=== PATIENT | female | born 1995 | race African-American/Black ===

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

== ENCOUNTER 2017-08-11 08:17 | Emergency (ER) | payer OTHER ==
[2017-08-11 08:32] VITALS: BP 128/78; PULSE 88; TEMP 99.3; BMI 24.0
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
[2017-08-11] MEDS ORDERED: METOCLOPRAMIDE HCL INJECTION 10 MG/2 ML VIAL IVPB ONE (10:35)
[2017-08-11] MEDS ORDERED: METOCLOPRAMIDE HCL INJECTION 10 MG/2 ML VIAL ONE (10:49)
== END 2017-08-11 12:24 | disposition home or self-care (01) ==
LOC: JERFT 08:17
PROC: 3E033GC Introduction of Other Therapeutic Substance into Peripheral Vein, Percutaneous Approach (ICD-10-PCS; principal; 2017-08-11)
DX: G43.009 Migraine without aura, not intractable, without status migrainosus (principal)
CPT/HCPCS: 70450-TC; 84703; 96374; 99281-25

== ENCOUNTER 2018-08-31 23:02 | Inpatient (IN) | payer OTHER ==
[2018-08-31 23:11] VITALS: BMI 20.6
--- NOTE | 2018-08-31 23:24 | PDOC ---
History of Present Illness - General Chief Complaint: Seizure Stated Complaint: SEIZURE Time Seen by Provider: 08/31/18 23:04 History Source: Patient - History of Present Illness Initial Comments: 08/31/18 23:17 23 year old female with a PMH of Brain abscess (2/2 to sinusitis infection) who presents to our ED s/p seizure. History provided by @ bedside. Patient 's states he and patient were sleeping when he woke up because patient was shaking. Her arms and legs were moving and her eyes rolled up in her head. She hit her head on headboard and moved patient to the floor and called 911. Seizure activity lasted approximately 5 minutes. Previous seizure more than 11 years previous and associated with her brain abscess. Patient has been c/o daily headaches for the last 2-3 months and seen a few neurologists with little relief of her symptoms. Has been taking Excedrin today for her headache. NKDA Surgical: C/S Social: denies toxic habits PMD: none-will refer As per EMR, patient evaluated in our ED in 07/2017 for MENDOZA; Head CT negative for hemmorage, mass effect. S/p bifrontal and R parietal crainiotomy. Past History - Past Medical History Allergies/Adverse Reactions: Allergies Allergy/AdvReac Type Severity Reaction Status Date / Time No Known Allergies Allergy Verified 08/31/18 23:11 Home Medications: Ambulatory Orders Meloxicam 7.5 mg PO DAILY 09/01/18 Tizanidine HCl 2 mg PO DAILY 09/01/18 Asthma: No Cancer: No Cardiac Disorders: No COPD: No Diabetes: No HTN: No Seizures: No Thyroid Disease: No - Immunization History Immunization Up to Date: Yes - Suicide/Smoking/Psychosocial Hx Smoking History: Never smoked Have you smoked in the past 12 months: No Information on smoking cessation initiated: No Hx Alcohol Use: No Drug/Substance Use Hx: No Substance Use Type: None Hx Substance Use Treatment: No Review of Systems - Review of Systems Able to Perform ROS?: No (Post Ictal) *Physical Exam - Vital Signs Last Vital Signs Temp Pulse Resp BP Pulse Ox 97.4 F L 71 13 121/54 L 95 08/31/18 23:02 08/31/18 23:02 08/31/18 23:02 08/31/18 23:02 08/31/18 23:02 - Physical Exam Comments: 09/01/18 01:18 Triage VS reviewed Drowsy, but arousable HEENT: frontal hematoma, EOMI, PEERLA CV: S1,S2, RRR Abdomen: soft, non-tender, (+) bowel sounds Respiratory: CLTA B/L, no wheeze/crackle Neuro: A&O x3, CN II-XII intact Heart Score/ECG Review - ECG Impressions Comment:: 09/01/18 01:56 HR 67, NSR, normal intervals, no deviations, no VIVIAN/STD/TWI ED Treatment Course - LABORATORY CBC & Chemistry Diagram: 09/01/18 06:05 09/01/18 06:05 Medical Decision Making - Medical Decision Making 08/31/18 23:29 23 year old female s/p crainotomy (10+ years previous) with witnessed tonic/ clonic seizure. Post Ictal and hypoxic (SpO2 80's) @ presentation. Head CT to r/o mass, intacranial hemmorhage. Serum , Basic Labs Keppra Loading. Likely disposition is admission. 09/01/18 00:37 Patient reassessed @ bedside C/o Headache - Tylenol VSS EKG non-ischemic as documented in EKG section of EMR 09/01/18 01:[address] shows no acute finding Hospitalist microblogged for admission - patient requires further evaluation of her seizure including MRI and EEG 09/01/18 01:58 Dr. Alexander (Resident) @ bedside Will admit to OBS *DC/Admit/Observation/Transfer Diagnosis at time of Disposition: Seizure - Referrals - Patient Instructions - Post Discharge Activity
--- NOTE | 2018-08-31 23:28 | PDOC ---
Documentation entered by May Todd SCRIBE, acting as scribe for Monserrat Phillips MD. Monserrat Phillips MD: This documentation has been prepared by the lamineePeyton Adrianna, SCRIBE, under my direction and personally reviewed by me in its entirety. I confirm that the documentation accurately reflects all work, treatment, procedures, and medical decision making performed by me. Attending Attestation - Resident Resident Name: Susan Saldana - ED Attending Attestation I have performed the following: I have examined & evaluated the patient, The case was reviewed & discussed with the resident, I agree w/resident's findings & plan, Exceptions are as noted - HPI HPI: The patient is a 23 year old female, with a significant PMH of brain abscess ( secondary to sinusitis, s/p craniotomy), who presents to the emergency department today s/p seizure prior to arrival. Patients notes they were in bed sleeping one hour ago, when he felt something shaking in bed. He woke up to find the patients extremities shaking and her eyes rolled back. He notes she hit her head on the headboard, and he proceeded to move her off of the bed and onto the floor. notes the episode lasted for 5 minutes. He states her last seizure was over 11 years ago, and was related to her brain abscess. Patient has been endorses a frontal headache for the past few months, but has been following up with her neurologist regularly without any acute findings. Patient is postictal while in the ED during evaluation. The patient denies chest pain, shortness of breath, and dizziness. Denies fever, chills, nausea, vomit, diarrhea and constipation. Denies dysuria, frequency, urgency and hematuria. Allergies: NKA Past surgical history: Craniotomy Social history: No reported PCP: Doesnt have one 08/31/18 23:31 - Physicial Exam PE: 09/01/18 00:52 wnwd 23 yo female BIBA after witnessed 5 minute tonic clonic seizure head scalp hematoma eyes dora eomi oral exam no tongue trauma neck supple lungs cta b/l cvs [id number] abd nontender ext no deformities skin warm and dry no cva tenderness neuro initially post ictal but soon became conversant and no gross focal neuro deficits - Medical Decision Making 08/31/18 23:25 23 yo female BIBA after having a witnessed 5 minute tonic clonic seizure,pt in bed and hit her head on the headboard H brain abscess and is s/p craniotomy 2009 and sinus surgery 2012 she has had an intermittent headache for the past 3 months 09/01/18 00:55 new onset of tonic clonic seizures in 23 yo female with remote history of brain abscess and craniotomy labd wnl neg preg test ct scan brain done,reading is pending neuro consult/admit 09/01/18 01:40 09/01/18 01:44 EXAM: HEAD CT WITHOUT CONTRAST HISTORY: Seizure FINDINGS: Patient has had a bifrontal/bitemporal craniotomy. Underlying bifrontal encephalomalacia. No hemorrhage. No obvious acute infarct. Osseous structures are intact except for craniotomy defects. Reported By: Mitchell Obando MD 09/01/2018 01:38 EST 09/01/18 01:46 CAT scan of the head findings. Patient has had a bifrontal bitemporal craniotomy. I frontal encephalomalacia. No hemorrhage. No obvious acute infarct. Osseous structures are intact except for craniotomy defects plan admit/further neuro eval
[2018-08-31] MEDS ORDERED: levETIRAcetam 500 MG/5 ML INJECTION VIAL IVPB ONE (23:29)
[2018-09-01 00:09] LABS: BASO % 0.4 % (0-2.0); EOS % 0.2 % (0-4.5); HEMATOCRIT 36.8 % (32.4-45.2); HEMOGLOBIN 12.1 GM/dL (10.7-15.3); LYMPH % 4.8 % (8-40); MCH 31.3 pg (25.7-33.7); MEAN CELL VOLUME 94.8 fl (80-96); MEAN PLT VOLUME 9.6 fl (7.5-11.1); MONO % 3.5 % (3.8-10.2); NEUT % 91.1 % (42.8-82.8); PLATELET COUNT 190 K/MM3 (134-434); RBC 3.88 M/mm3 (3.60-5.2); WHITE BLOOD COUNT 12.2 K/mm3 (4.0-10.0)
[2018-09-01 00:30] LABS: BILIRUBIN,TOTAL 0.1 mg/dL (0.2-1); BLOOD UREA NITROGEN 18.1 mg/dL (7-18); CALCIUM 9.1 mg/dL (8.5-10.1); CREATININE 0.8 mg/dL (0.55-1.3); TOT PROT 7.5 g/dl (6.4-8.2)
[2018-09-01] MEDS ORDERED: ACETAMINOPHEN 1000 MG/100 ML VIAL (NON FORMULARY) IVPB ONE (00:38)
[2018-09-01] MEDS ORDERED: levETIRAcetam 500 MG/5 ML INJECTION VIAL IVPB ONE (00:40)
[2018-09-01] MEDS ORDERED: ACETAMINOPHEN INJECTION 100 ML IVPB ONE (01:48)
[2018-09-01 01:57] LABS: ANISOCYTOSIS 0; HELMET CELLS 0; HOWELL-JOLLY BODIES 0; MACROCYTOSIS 0; OVALOCYTE 0; PLATELET ESTIMATE NORMAL; ROULEAU 0; SICKELED CELLS 0; TARGET CELLS 0; TEAR DROP CELLS 0; TOXIC GRANULATION 0
--- NOTE | 2018-09-01 02:26 | PN ---
Teaching Attending Note Name of Resident: Malika Alexander ATTENDING PHYSICIAN STATEMENT I saw and evaluated the patient. I reviewed the resident's note and discussed the case with the resident. I agree with the resident's findings and plan as documented. SUBJECTIVE: Patient is a 23 year old woman with a PMH of brain abscess (secondary to sinusitis, s/p craniotomy 10 years ago), who presents to the ER after a witnessed seizure. Patients notes they were in bed sleeping one hour ago, when he felt something shaking in bed. He woke up to find the patients extremities shaking and her eyes rolled back. He notes she hit her head on the headboard, and he proceeded to move her off of the bed and onto the floor. notes the episode lasted about 5 minutes. He states her last seizure was over 11 years ago, and was related to her brain abscess. Reportedly had an unwitnessed seizure 2 months ago (was found on the floor). Patient has been having a frontal headache for the past few months, but has been following up with her neurologist regularly without any acute findings. Patient is postictal while in the ER during evaluation. Lives at home with her , her one year old child and her grandmother. Smokes marijuana twice a day. Denies alcohol abuse or use of any othe illicit drug. Has had irregular menstrual bleeding since her childbirth last year. The patient denies chest pain , shortness of breath, fever, chills, nausea, vomit, diarrhea, constipation, dysuria, frequency, urgency or hematuria. OBJECTIVE: Alert Vital Signs Period Temp Pulse Resp BP Sys/Taylor Pulse Ox Last 24 Hr 97.4 F-98.5 F 71-86 13 121-135/54-81 95-96 HEENT: No Jaundice, eye redness or discharge, PERRLA, EOMI. Craniotomy scar. External ears are normal and hearing is grossly intact. No nasal discharge. Neck: Supple, nontender. No palpable adenopathy or thyromegaly. No JVD Chest: Good effort. Clear to auscultation and percussion. Heart: Regular. No S3, rub or murmur Abdomen: Not distended, soft, nontender and no HSM. No rebound or guarding. Normal bowel sounds. Ext: Peripheral pulses intact. No leg edema. Skin: Warm and dry. No petechiae, rash or ecchymosis. Neuro: Alert. Oriented x3. CN 2-12 grossly intact. Sensation grossly intact in all four extremities and DTR are symmetric. Psych: Appropriate mood and affect. Good insight. Home Medications Medication Instructions Recorded NK [No Known Home Medication] 08/11/17 Abnormal Lab Results 08/31/18 08/31/18 23:51 23:51 WBC 12.2 H Absolute Neuts (auto) 11.1 H Neutrophils % 91.1 H D Lymphocytes % 4.8 L D Lymphocytes % (Manual) 7.8 L Monocytes % 3.5 L Monocytes % (Manual) 0 L Eosinophils % (Manual) 4.8 H Chloride 108 H Anion Gap 1 L BUN 18.1 H Total Bilirubin 0.1 L Alkaline Phosphatase 123 H ASSESSMENT AND PLAN: 1. Seizure disorder - May be related to sequelae of craniotomy. Leukocytosis may be due to the stress of seizure. Patient is afebrile and there is no other evidence of infection. Report of non contrast CT scan of brain = "Patient has had a bifrontal/bitemporal craniotomy. Underlying bifrontal encephalomalacia. No hemorrhage. No obvious acute infarct. Osseous structures are intact except for craniotomy defects.". No acute pathology on CXR and EKG is NSR with no significant changes. Patient got 1 gm of Keppra in the ER. Will get MRI/MRA, repeat CBC, EEG, urine toxicology and consult Neurology. 2. DVT prophylaxis - Lovenox 40 mg SQ q 24 hours. 3. Advance directives - Full code
[2018-09-01 02:37] LABS: URINE APPEARANCE CLEAR; URINE BILIRUBIN NEGATIVE (NEGATIVE); URINE COLOR YELLOW; URINE GLUCOSE (UA) NEGATIVE (NEGATIVE); URINE KETONE NEGATIVE (NEGATIVE); URINE LEUK ESTERASE NEGATIVE (NEGATIVE); URINE NITRITE NEGATIVE (NEGATIVE); URINE PROTEIN NEGATIVE (NEGATIVE); URINE UROBILINOGEN 0.2 mg/dL (0.2-1.0)
--- NOTE | 2018-09-01 04:01 | HP ---
Admitting History and Physical - Primary Care Physician PCP: Not on file - Admission Chief Complaint: seizures History of Present Illness: Pt is a 23 yo F with PMHx of brain abscess s/p crainectomy, prior seizures, migraine headache, now presenting with seizure while sleeping today. Pt reported by spouse to have had tonic clonic seizures with staring into space for about 5 mins. Was BIBEMS and initially hypoxic in ED. Pt reports chills today, no dysuria, but reports abnormal vaginal discharge. No cough, but has chronic, persistent headaches following a neurologist, on 2 medications she is not sure of. Pt has been having persistent vaginal bleed, since one dose of depot 6 weeks after childbirth. 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 - Past Surgical History Past Surgical History: Yes: Additional Past Surgical History: prior crainectomy for brain abscess - Smoking History Smoking history: Never smoked Have you smoked in the past 12 months: No - Alcohol/Substance Use Hx Alcohol Use: No History of Substance Use: reports: Marijuana (bid smoking) - Social History Usual Living Arrangement: Yes: With Spouse, With Child, Other ADL: Independent History of Recent Travel: No Home Medications - Allergies Allergies/Adverse Reactions: Allergies Allergy/AdvReac Type Severity Reaction Status Date / Time No Known Allergies Allergy Verified 08/31/18 23:11 - Home Medications Home Medications: Ambulatory Orders Meloxicam 7.5 mg PO DAILY 09/01/18 Tizanidine HCl 2 mg PO DAILY 09/01/18 Family Disease History - Family Disease History Family Disease History: Other: Grandparent (Headaches), Mother (Headaches), Brother (Headaches) Other Family History: Seizures in maternal Uncle Review of Systems - Review of Systems Constitutional: reports: Chills. denies: Lethargy, Loss of Appetite Eyes: denies: Blurred Vision, Double Vision, Photophobia, Recent Change in Vision HENT: denies: Difficult Swallowing, Hearing Loss, Nasal Congestion Cardiovascular: denies: Chest Pain Respiratory: denies: Cough Gastrointestinal: denies: Abdominal Pain Genitourinary: reports: Discharge Neurological: reports: Change in LOC, Seizure Hematology/Lymphatic: reports: Excessive Bleeding (Menstrual bleed) Physical Examination Vital Signs: Vital Signs Temperature 98.5 F 09/01/18 01:08 Pulse Rate 86 06/11/19 01:08 Respiratory Rate 13 08/31/18 23:02 Blood Pressure 135/81 09/01/18 01:08 O2 Sat by Pulse Oximetry (%) 96 09/01/18 01:08 Constitutional: Yes: Well Nourished, No Distress Eyes: Yes: Conjunctiva Clear, EOM Intact, PERRL HENT: Yes: Atraumatic, Other (Healed surgical scar frontal bone) Neck: Yes: Supple Cardiovascular: Yes: S1, S2 Respiratory: Yes: Regular, CTA Bilaterally Gastrointestinal: Yes: Normal Bowel Sounds, Soft Edema: No Peripheral Pulses WNL: Yes Neurological: Yes: Alert, Oriented. No: Confusion, Dysarthria, Facial Droop, Lethargy, Loss of Sensation, Numbness, Paresthesia, Pre-Existing Deficit, Seizure ...Motor Strength: WNL Psychiatric: Yes: Alert, Oriented Labs: CBC, BMP 08/31/18 23:51 08/31/18 23:51 Imaging - Results Chest X-ray: Image Reviewed Cat Scan: Report Reviewed Assessment/Plan Ambulatory Orders NK [No Known Home Medication] 08/11/17 Assessment/Plan: Pt is a 23 yo F with PMHx of brain abscess s/p crainectomy, prior seizures, migraine headache, now presenting with seizure while sleeping today. seizures Prior brain abscess s/p crainectomy Leukocytosis Bandemia Marijuana use Menorrhagia Migraine Utox EEg MRI w/w/o contrast Neuro consult Repeat CBC r/o reactive (bands) UA ETOH level Received Keppra in ED Repeat CBC- leukocytosis may be reactive, No obvious focus of infection follow reconciliation analyst outpt Confirm migraine medications FEN No standing fluids Monitor lytes, replete as needed Regular diet PPx Lovenox sq Dispo Medsurg Visit type - Emergency Visit Emergency Visit: Yes ED Registration Date: 09/01/18 Care time: The patient presented to the Emergency Department on the above date and was hospitalized for further evaluation of their emergent condition. - New Patient This patient is new to me today: Yes Date on this admission: 09/01/18 - Critical Care Critical Care patient: No
[2018-09-01 07:53] LABS: INR 1.21 (0.83-1.09); PROTHROMBIN TIME (PATIENT) 14.3 SEC (9.7-13.0)
[2018-09-01 07:55] LABS: ACTIVATED PTT 30.1 SECONDS (25.2-36.5)
[2018-09-01 08:10] LABS: ALBUMIN 3.5 g/dl (3.4-5.0); BILIRUBIN,TOTAL 0.3 mg/dL (0.2-1); BLOOD UREA NITROGEN 14.3 mg/dL (7-18); CALCIUM 8.8 mg/dL (8.5-10.1); CREATININE 0.6 mg/dL (0.55-1.3); MAGNESIUM 2.5 mg/dL (1.8-2.4); PHOSPHOROUS 3.7 mg/dL (2.5-4.9); TOT PROT 6.6 g/dl (6.4-8.2)
[2018-09-01 08:35] LABS: BASO % 0.5 % (0-2.0); EOS % 0.2 % (0-4.5); HEMATOCRIT 34.4 % (32.4-45.2); HEMOGLOBIN 11.6 GM/dL (10.7-15.3); LYMPH % 14.9 % (8-40); MCH 31.4 pg (25.7-33.7); MCHC 33.6 g/dl (32.0-36.0); MEAN CELL VOLUME 93.7 fl (80-96); MEAN PLT VOLUME 10.7 fl (7.5-11.1); MONO % 4.9 % (3.8-10.2); NEUT % 79.5 % (42.8-82.8); PLATELET COUNT 204 K/MM3 (134-434); RBC 3.68 M/mm3 (3.60-5.2); WHITE BLOOD COUNT 11.6 K/mm3 (4.0-10.0)
[2018-09-01 09:29] LABS: URINE APPEARANCE CLEAR; URINE BILIRUBIN NEGATIVE (NEGATIVE); URINE COLOR YELLOW; URINE GLUCOSE (UA) NEGATIVE (NEGATIVE); URINE KETONE NEGATIVE (NEGATIVE); URINE LEUK ESTERASE NEGATIVE (NEGATIVE); URINE NITRITE NEGATIVE (NEGATIVE); URINE PROTEIN NEGATIVE (NEGATIVE); URINE UROBILINOGEN 0.2 mg/dL (0.2-1.0)
--- NOTE | 2018-09-01 09:44 | CON.NEURO ---
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 - Past Surgical History Past Surgical History: Yes: - Alcohol/Substance Use Hx Alcohol Use: No History of Substance Use: reports: Marijuana (bid smoking) - Smoking History Smoking history: Never smoked Have you smoked in the past 12 months: No - Social History ADL: Independent History of Recent Travel: No Home Medications - Allergies Allergies/Adverse Reactions: Allergies Allergy/AdvReac Type Severity Reaction Status Date / Time No Known Allergies Allergy Verified 08/31/18 23:11 - Home Medications Home Medications: Ambulatory Orders NK [No Known Home Medication] 08/11/17 Family Disease History - Family Disease History Family Disease History: Other: Grandparent (Headaches), Mother (Headaches), Brother (Headaches) Other Family History: Seizures in maternal Uncle Physical Exam-Neuro Vital Signs: Vital Signs Temperature 98.2 F 09/01/18 09:16 Pulse Rate 83 09/01/18 09:16 Respiratory Rate 20 09/01/18 09:16 Blood Pressure 114/68 09/01/18 09:16 O2 Sat by Pulse Oximetry (%) 99 09/01/18 05:32 Labs: CBC, BMP 09/01/18 06:05 09/01/18 06:05 INR, PTT INR 1.21 (0.83-1.09) H 09/01/18 06:05 Assessment/Plan cc New onset seizure HPI 23 year old female history of craniotomy , seizure in past and brain abscess. Patient also suffers from migraine. She is seeing headache specialist at [facility]. patient has tonic clonic seizure while asleep. Patient was brought by ambulance and was hypoxic. Patient is feeling better. She has bifrontal cranitomy and frontal encephalomalacia. Patient has no cognitive difficulty and graduated from high school PMH as above PSH,SH,ROS,FH reviewed in chart Allergies/Adverse Reactions: Allergies Allergy/AdvReac Type Severity Reaction Status Date / Time No Known Allergies Allergy Verified 08/31/18 23:11 NK [No Known Home Medication] 08/11/17 Neurological examination Alert oriented x 3 cn all intact motor 5/5 all ext sensation is normal reflex is grade [address] head showed bilateral frontal lobe encephalomalacia Assessment/Plan New onset seizure , s/p bifrontal cranitomy with encephalomalacia. Neuro exam is normal Plan 1. concur with mri of brain - eeg - seizure precautions discussed with family and pateint - start keppra 750 mg po bid follow up outpatient Thanking you so much Pradeep Sen MD
[2018-09-01] MEDS: levETIRAcetam 250 MG TABLET (FP) PO SCH ×2 (09:54→21:14)
--- NOTE | 2018-09-01 11:56 | PN ---
Teaching Attending Note Name of Resident: Rosita Swift ATTENDING PHYSICIAN STATEMENT I saw and evaluated the patient. I reviewed the resident's note and discussed the case with the resident. I agree with the resident's findings and plan as documented. SUBJECTIVE:c/o MENDOZA, states she has had severe debilitating daily MENDOZA for the past 10 months after hitting her head in the shower on a railing. assoc with photophobia. has seen neurologist here and startd on unknown medication which she took for a month but caused dizzyness so she stopped. then saw MENDOZA specialist in [place] which also started medication which she had no relief and also stopped. states shes has had rhinorrhea and nasal congestion from craniotomy 10 years ago and was normal per pt who has not seen neurosurgeon since that time. states she has been lethargic and run down over the past week. no taking any medication. no sick contact. denies Cp, SOB, fever , chills, N/V/C/D has not had seizure for 10 years when she was first discovered to have brain abscess OBJECTIVE: Last Vital Signs Temp Pulse Resp BP Pulse Ox 98.2 F 83 20 114/68 99 09/01/18 09:16 09/01/18 09:16 09/01/18 09:16 09/01/18 09:16 09/01/18 05:32 General lethargic, sounds congested HEENT +frontal tenderness, no maxillary tenderness CV S1 S2 RRR no murmur/rub/gallop Lungs CTA B/L no wheezing/rales/rhonchi Neuro CN II-XII grossly intact, strength and sensation equal in all 4 extremities, no dysmetria no pronator drift ASSESSMENT AND PLAN: 23yo F with PMH Brain abscess s/p bifrontal and R parietal craniotomy presented to the ER after witness tonic/clonic seizure and reports chronic MENDOZA 1. Witness tonic/clonic seizure-possible potentiated by fatigue. no signs of infection. no episodes since arrival. initial Head CT shows no changes. will obtain MRI, EEG. check Utox. neuro consulted. seizure precautions. elevate HOB 2. Chronic daily MENDOZA- would benefit from preventative therapy. will call to pharmacies to see what was started on in the past that she had negative Adverse effects to. neuro on board 3. hx of brain abscess s/p craniotomy-Cx sent although low suspicion for infection. no lesions seen on CT. will f/u on MRI. family reached out to neurosurgeon. 4. DVT ppx- EAM 5. spoke with and extended family present at bedside. all questions answered. verbalized understanding and agreement with plan
--- NOTE | 2018-09-01 12:42 | EKG ---
Test Reason : Blood Pressure : / mmHG Vent. Rate : 067 BPM Atrial Rate : 067 BPM P-R Int : 146 ms QRS Dur : 094 ms QT Int : 386 ms P-R-T Axes : 021 053 045 degrees QTc Int : 407 ms NORMAL SINUS RHYTHM NORMAL ECG NO PREVIOUS ECGS AVAILABLE Confirmed by Michael Lainez MD ([id number]) on 09/01/2018 12:42:41 PM Referred By: Confirmed By:Michael Lainez MD
--- NOTE | 2018-09-01 13:20 | PN ---
Physical Exam: SUBJECTIVE: Patient seen and examined at bedside. Pt complains of severe headaches, although this has been chronic over the past 10 months. +photophobia , worsening headache with perfumes. Denies f/c, n/v, cp, sob, urinary/bowel symptoms. OBJECTIVE: Vital Signs Period Temp Pulse Resp BP Sys/Taylor Pulse Ox Last 24 Hr 97.4 F-98.5 F 60-86 13-20 114-135/54-81 95-99 GENERAL: Resting comfortably in bed. NAD. HEENT: EOMI. MOist mucus membranes. NILE. Facial symmetry noted. NECK: Trachea midline, full range of motion, supple. LUNGS: CTA B/L. No wheezes, rhonchi, rales noted. HEART: RRR. Normal S1, S2. No murmurs noted. ABDOMEN: Soft, NT/ND. +BS. No masses, rebound tenderness. EXTREMITIES: 2+ pulses, warm, well-perfused, no edema. NEUROLOGICAL: CN intact. Responds to commands. 5/5 motor strength in u/l b/l extremities. 5/5 hand raisin washer. b/l sensation intact. PSYCH: Normal mood, normal affect. SKIN: Warm, dry, normal turgor, no rashes or lesions noted Laboratory Results - last 24 hr 08/31/18 08/31/18 08/31/18 23:51 23:51 23:51 WBC 12.2 H RBC 3.88 Hgb 12.1 Hct 36.8 D MCV 94.8 MCH 31.3 MCHC 33.0 RDW 14.0 D Plt Count 190 MPV 9.6 D Absolute Neuts (auto) 11.1 H Neutrophils % 91.1 H D Neutrophils % (Manual) 78.6 Band Neutrophils % 7.8 Lymphocytes % 4.8 L D Lymphocytes % (Manual) 7.8 L Monocytes % 3.5 L Monocytes % (Manual) 0 L Eosinophils % 0.2 D Eosinophils % (Manual) 4.8 H Basophils % 0.4 Basophils % (Manual) 1.0 Myelocytes % (Man) 0 Promyelocytes % (Man) 0 Blast Cells % (Manual) 0 Nucleated RBC % 0 Metamyelocytes 0 Hypochromia 0 Toxic Granulation 0 Dohle Bodies 0 Platelet Estimate Normal Polychromasia 0 Poikilocytosis 0 Basophilic Stippling 0 Anisocytosis 0 Microcytosis 0 Macrocytosis 0 Spherocytes 0 Sickle Cells 0 Target Cells 0 Tear Drop Cells 0 Ovalocytes 0 Stomatocytes 0 Helmet Cells 0 [place] Bodies 0 [place] Rings 0 Vestal Cells 0 Acanthocytes (Spur) 0 Rouleaux 0 Fragmented RBCs 0 Schistocytes 0 PT with INR INR PTT (Actin FS) Sodium 138 Potassium 5.0 Chloride 108 H Carbon Dioxide 30 Anion Gap 1 L BUN 18.1 H Creatinine 0.8 Est GFR (CKD-EPI)AfAm 122.14 Est GFR (CKD-EPI)NonAf 105.39 Random Glucose 90 Calcium 9.1 Phosphorus Magnesium Total Bilirubin 0.1 L AST 34 ALT 39 Alkaline Phosphatase 123 H Total Protein 7.5 Albumin 4.0 TSH Serum , Qual Negative Urine Color Urine Appearance Urine pH Ur Specific Miller Urine Protein Urine Glucose (UA) Urine Ketones Urine Blood Urine Nitrite Urine Bilirubin Urine Urobilinogen Ur Leukocyte Esterase Alcohol, Quantitative 09/01/18 09/01/18 09/01/18 02:30 06:05 06:05 WBC 11.6 H RBC 3.68 Hgb 11.6 Hct 34.4 MCV 93.7 MCH 31.4 MCHC 33.6 RDW 14.0 Plt Count 204 MPV 10.7 D Absolute Neuts (auto) 9.2 H Neutrophils % 79.5 Neutrophils % (Manual) Band Neutrophils % Lymphocytes % 14.9 D Lymphocytes % (Manual) Monocytes % 4.9 Monocytes % (Manual) Eosinophils % 0.2 Eosinophils % (Manual) Basophils % 0.5 Basophils % (Manual) Myelocytes % (Man) Promyelocytes % (Man) Blast Cells % (Manual) Nucleated RBC % 0 Metamyelocytes Hypochromia Toxic Granulation Dohle Bodies Platelet Estimate Polychromasia Poikilocytosis Basophilic Stippling Anisocytosis Microcytosis Macrocytosis Spherocytes Sickle Cells Target Cells Tear Drop Cells Ovalocytes Stomatocytes Helmet Cells [place] Bodies [place] Rings Vestal Cells Acanthocytes (Spur) Rouleaux Fragmented RBCs Schistocytes PT with INR INR PTT (Actin FS) Sodium Potassium Chloride Carbon Dioxide Anion Gap BUN Creatinine Est GFR (CKD-EPI)AfAm Est GFR (CKD-EPI)NonAf Random Glucose Calcium Phosphorus Magnesium Total Bilirubin AST ALT Alkaline Phosphatase Total Protein Albumin TSH Serum , Qual Urine Color Yellow Urine Appearance Clear Urine pH 6.0 Ur Specific Miller 1.018 Urine Protein Negative Urine Glucose (UA) Negative Urine Ketones Negative Urine Blood Negative Urine Nitrite Negative Urine Bilirubin Negative Urine Urobilinogen 0.2 Ur Leukocyte Esterase Negative Alcohol, Quantitative < 3.0 09/01/18 09/01/18 09/01/18 06:05 06:05 06:59 WBC RBC Hgb Hct MCV MCH MCHC RDW Plt Count MPV Absolute Neuts (auto) Neutrophils % Neutrophils % (Manual) Band Neutrophils % Lymphocytes % Lymphocytes % (Manual) Monocytes % Monocytes % (Manual) Eosinophils % Eosinophils % (Manual) Basophils % Basophils % (Manual) Myelocytes % (Man) Promyelocytes % (Man) Blast Cells % (Manual) Nucleated RBC % Metamyelocytes Hypochromia Toxic Granulation Dohle Bodies Platelet Estimate Polychromasia Poikilocytosis Basophilic Stippling Anisocytosis Microcytosis Macrocytosis Spherocytes Sickle Cells Target Cells Tear Drop Cells Ovalocytes Stomatocytes Helmet Cells [place] Bodies [place] Rings Lamine Cells Acanthocytes (Spur) Rouleaux Fragmented RBCs Schistocytes PT with INR 14.30 H INR 1.21 H PTT (Actin FS) 30.1 Sodium 140 Potassium 4.0 Chloride 107 Carbon Dioxide 26 Anion Gap 7 L BUN 14.3 Creatinine 0.6 Est GFR (CKD-EPI)AfAm 151.01 Est GFR (CKD-EPI)NonAf 130.29 Random Glucose 79 Calcium 8.8 Phosphorus 3.7 Magnesium 2.5 H Total Bilirubin 0.3 AST 29 ALT 34 Alkaline Phosphatase 108 Total Protein 6.6 Albumin 3.5 TSH 0.56 Serum , Qual Urine Color Yellow Urine Appearance Clear Urine pH 6.0 Ur Specific Miller 1.018 Urine Protein Negative Urine Glucose (UA) Negative Urine Ketones Negative Urine Blood Negative Urine Nitrite Negative Urine Bilirubin Negative Urine Urobilinogen 0.2 Ur Leukocyte Esterase Negative Alcohol, Quantitative Active Medications Generic Name Dose Route Start Last Admin Trade Name Freq PRN Reason Stop Dose Admin Levetiracetam 750 mg 09/01/18 10:00 09/01/18 09:54 Keppra - PO 750 mg BID EVELIA Administration IMAGING: * Head CT: Bifrontal craniotomy and b/l anterior frontal large area of encephalomalacia w/o interval change. Interval L maxillary antrum sinusitis. R ethmoid chronic sinusitis. ASSESSMENT/PLAN: 23F with PMHx of brain abscess s/p crainectomy, prior seizures, migraine headache, now presenting after a witness tonic/clonic seizure. #Witness tonic/conic seizures; s/p crainectomy 11 years ago -Pt stable today, no new seizure episodes. Does not appear to be infectious process. WBC improving, bandemia resolved. Head CT neg. -Utox pending -Per neuro, obtain MRI brain w/, w/o contrast as well as EEG -Start Keppra 750 BID -Family reached out to neurosurgeon. I spoke to secretary receptionist, Endy, who will relay message to Dr. Conner; await callback from neurosurgeon regarding pt's history. #Chronic daily headache -verify which meds pt has taken in the past -daily marijuana use #Hx of brain abscess s/p crainectomy -f/u MRI brain -BCx, UCx pending. U/A neg -await callback from neurosurgeon for previous neuro history FEN -No standing fluids -Monitor lytes, replete as needed -Regular diet PPx Lovenox sq Dispo -cont to monitor on med-surg Visit type - Emergency Visit Emergency Visit: Yes ED Registration Date: 09/01/18 Care time: The patient presented to the Emergency Department on the above date and was hospitalized for further evaluation of their emergent condition. - New Patient This patient is new to me today: Yes Date on this admission: 09/01/18 - Critical Care Critical Care patient: No
[2018-09-01] MEDS: ACETAMINOPHEN/CAFFEINE/BUTALBITAL 1 TAB PO PRN (16:53)
[2018-09-02 08:17] LABS: HEMATOCRIT 36.2 % (32.4-45.2); HEMOGLOBIN 12.3 GM/dL (10.7-15.3); MCH 31.9 pg (25.7-33.7); MEAN CELL VOLUME 93.8 fl (80-96); MEAN PLT VOLUME 10.4 fl (7.5-11.1); PLATELET COUNT 193 K/MM3 (134-434); RBC 3.86 M/mm3 (3.60-5.2); RDW 14.1 % (11.6-15.6); WHITE BLOOD COUNT 11.3 K/mm3 (4.0-10.0)
[2018-09-02] MEDS: ACETAMINOPHEN/CAFFEINE/BUTALBITAL 1 TAB PO PRN (08:52)
[2018-09-02] MEDS ORDERED: NORTRIPTYLINE HCL 25 MG CAPSULE PO ONE (10:57)
[2018-09-02] MEDS ORDERED: diazePAM 2 MG TABLET PO ONE (11:01)
[2018-09-02] MEDS: levETIRAcetam 250 MG TABLET (FP) PO SCH (11:25)
[2018-09-02] MEDS ORDERED: PT OWN MED DRAWER 7, Y5N ONE (13:18)
[2018-09-02 14:38] VITALS: BP 135/79; TEMP 99.4
--- NOTE | 2018-09-02 14:59 | PN ---
Teaching Attending Note Name of Resident: Rosita Swift ATTENDING PHYSICIAN STATEMENT I saw and evaluated the patient. I reviewed the resident's note and discussed the case with the resident. I agree with the resident's findings and plan as documented. SUBJECTIVE:c/o MENDOZA not being relieved with fiorcet. no seizure like activity. denies CP, SOB, fever, chills, N/V/C/D OBJECTIVE: Last Vital Signs Temp Pulse Resp BP Pulse Ox 99.4 F 75 18 135/79 99 09/02/18 14:00 09/02/18 10:00 09/02/18 14:00 09/02/18 14:00 09/02/18 09:00 General NAD ASSESSMENT AND PLAN: 23yo F with PMH Brain abscess s/p bifrontal and R parietal craniotomy presented to the ER after witness tonic/clonic seizure and reports chronic MENDOZA 1. Witness tonic/clonic seizure-possible potentiated by fatigue/stress. no repeat episodes. MRI done and negative for acute pathology. EEG done. started on keppra. will need follow up with neuro for further testing. no driving or operating heavy machinery until cleared by neuro. 2. Chronic daily MENDOZA- liekly post-concussion syndrome. possible prolonged course as pt did not experience MENDOZA prior to hitting her head 10 months ago. will try valium to see if helps with MENDOZA. start on nortriptylline. reassurance that with medication it should improve. behavioral therapy for stress management. pt did try topamax in the past with poor responsive and not tolerable side effects 3. hx of brain abscess s/p craniotomy-resident spoke with neurosurg. states he has not seen her since original sx 10 years ago. events likely not related to surgery. 4. DVT ppx- EAM 5. spoke with and extended family present at bedside. spoke in detail about plan and need for taking medications as instructed and following up. explained that MENDOZA may not completely disappear with medication but should overall improve with treatment. will re-assess patient later today, if MENDOZA improved can d/c home.
[2018-09-02 15:13] VITALS: PULSE 76
--- NOTE | 2018-09-02 15:53 | DS ---
Physical Exam: SUBJECTIVE: Patient seen and examined at bedside. No acute events overnight. OBJECTIVE: Vital Signs Period Temp Pulse Resp BP Sys/Taylor Pulse Ox Last 24 Hr 96.8 F-99.4 F 55-76 18-20 111-135/56-80 99-99 PHYSICAL EXAM GENERAL: Resting comfortably in bed. NAD. HEENT: EOMI. MOist mucus membranes. NILE. Facial symmetry noted. NECK: Trachea midline, full range of motion, supple. LUNGS: CTA B/L. No wheezes, rhonchi, rales noted. HEART: RRR. Normal S1, S2. No murmurs noted. ABDOMEN: Soft, NT/ND. +BS. No masses, rebound tenderness. EXTREMITIES: 2+ pulses, warm, well-perfused, no edema. NEUROLOGICAL: CN intact. Responds to commands. 5/5 motor strength in u/l b/l extremities. 5/5 hand linux administrator. b/l sensation intact. PSYCH: Normal mood, normal affect. SKIN: Warm, dry, normal turgor, no rashes or lesions noted LABS Laboratory Results - last 24 hr 09/02/18 06:43 WBC 11.3 H RBC 3.86 Hgb 12.3 Hct 36.2 MCV 93.8 MCH 31.9 MCHC 34.0 RDW 14.1 Plt Count 193 MPV 10.4 HOSPITAL COURSE: Date of Admission:09/01/18 IMAGING: * Head CT: Bifrontal craniotomy and b/l anterior frontal large area of encephalomalacia w/o interval change. Interval L maxillary antrum sinusitis. R ethmoid chronic sinusitis. * Brain MRI: B/l frontal craniotomies and b/l anterior frontal encephalomalacia are again seen. Mild volume loss. No acute pathology or abnormal intracranial enhancement. NO intra or extra-axial collection present. Hippocampal symmetric w /o evidence of mesial temporal sclerosis. 23F with PMHx of brain abscess s/p crainectomy, prior seizures, migraine headache, who presented to the hospital after a witnessed tonic/clonic seizure. Upon arrival to the hospital, pt's seizure had already resolved. Head CT was remarkable for bifrontal craniotomy and b/l anterior frontal large area of encephalomalacia w/o interval change. Pt was seen and evaluated by neuro and given Keppra for seizure prophylaxis. During her hospital stay, pt complained of severe migraine headaches and was given Fioricet with no effect. As a result , she was given Nortriptyline as well as Valium with good effect. Pt underwent EEG with results pending. Her symptoms improved and was subsequently discharged home to continue taking Keppra, nortryptiline, and valium. She was also advised to follow up with her primary care physician, and neuro headache specialist as an outpatient. Date of Discharge: 09/02/18 Minutes to complete discharge: 35 Discharge Summary Reason For Visit: SEIZURE Current Active Problems Post concussion syndrome (Acute) Condition: Good - Instructions Diet, Activity, Other Instructions: You were seen in the hospital after having a witnessed seizure. A head CT and brain MRI were both done that did not show any acute neurological conditions that needed immediate intervention. You were evaluated by a neurologist and prescribed medication to prevent further seizures. You were monitored in the hospital overnight with no signs of additional seizures. Additionally, you complained of persistent and worsening headaches. You were given Nortriptyline for prevention of future headaches. Your symptoms stabilized. You are being discharged home. DO NOT DRIVE OR OPERATE HEAVY MACHINERY UNTIL CLEARED BY NEUROLOGY. MEDICATIONS Please START taking Keppra 750 mg twice a day to prevent further seizures. Please START taking Nortriptyline 25 mg to prevent further headaches. this should be taken EVERY day regardless if you are having a headache or not You can use excedrin as needed when you are having a headache. IF you are having a severe headache that is not improving you can take valium. Please use extreme caution when using this medication as it can be sedating. DO not drive or operate heavy machinery when using it. FOLLOW UP Please follow up with your primary care physician. If you do not have one, you may make an appointment at [facility] with Dr. Swift Please follow up with your neurologist, Dr. Sen, within 1 week. Please follow up with your headache specialist, Dr. Dhaval Oh for further evaluation of your headaches. If you experience another seizure, worsening and persistent headaches, visual problems, chest pain, shortness of breath, weakness in your extremities, please proceed to your nearest emergency room immediately. Referrals: Dhaval Oh MD [Other] - 1 Week [facility] [place] [facility] [place] [Provider Group] Pradeep Sen MD [Staff Physician] - 1 Week Disposition: HOME - Home Medications Comprehensive Discharge Medication List: Ambulatory Orders Diazepam [Valium] 2 mg PO HS PRN #4 tablet MDD 2mg 09/02/18 Levetiracetam 750 mg PO BID #60 tablet 09/02/18 Nortriptyline HCl [Pamelor -] 25 mg PO DAILY #30 capsule 09/02/18 This patient is new to me today: No Emergency Visit: Yes ED Registration Date: 09/01/18 Care time: The patient presented to the Emergency Department on the above date and was hospitalized for further evaluation of their emergent condition. Critical Care patient: No - Discharge Referral Referred to [facility] Med [facility] No
== END 2018-09-02 17:40 | disposition home or self-care (01) | DRG 53 ==
LOC: JER 23:02 → JERBED 09-01 01:50 → OBSVTOIN 09-01 03:42 → J5S 09-01 04:13
PROVIDERS: ADMIT Internal Medicine; ATTEND Internal Medicine
DX: G40.409 Other generalized epilepsy and epileptic syndromes, not intractable, without status epilepticus (principal); J32.9 Chronic sinusitis, unspecified; G43.909 Migraine, unspecified, not intractable, without status migrainosus; D72.829 Elevated white blood cell count, unspecified; N92.0 Excessive and frequent menstruation with regular cycle; F12.90 Cannabis use, unspecified, uncomplicated; G93.89 Other specified disorders of brain
CPT/HCPCS: 36415; 70450-TC; 70553-TC; 71045-TC-FY; 80053; 80307; 81003; 83735; 84100; 84443; 84703; 85025; 85027; 85610; 85730; 87040; 87086; 93005; 93010; 95816; 99284-25; A9579; G0378; J0131

== ENCOUNTER 2018-12-09 19:24 | Observation (INO) | payer OTHER ==
[2018-12-09] MEDS ORDERED: levETIRAcetam 500 MG TABLET (FP) PO ONE ×2 (20:21→20:49)
--- NOTE | 2018-12-09 20:40 | PDOC ---
History of Present Illness - General Chief Complaint: Syncope/Near Syncope Stated Complaint: SYNCOPE Time Seen by Provider: 12/09/18 19:57 History Source: Patient Exam Limitations: No Limitations - History of Present Illness Initial Comments: 12/09/18 20:46 23 yo female pmh brain abscess s/p crainectomy, prior seizures, migraine headache, who presented to the hospital after possible unwitnessed seizure. Pt states while taking a bath there was a loss of time, found by who states she appeared confused for 20 min and in a similar state a her last seizure 08/2018 for which she was admitted. Pt DC on Keppra, pt non complaint and states it has been 2 months since she last too her medications. Pt has a hx of chronic headaches, seen by Neurology and MENDOZA not relieved by treatments. MENDOZA today is of the same quality and intensity as past MENDOZA without changes in vision , neck stiffniess, weakness on 1 side of her body, N/V/F/C, current confusion. Pt AOX3, reports normal mentation at this time. Past History - Past Medical History Allergies/Adverse Reactions: Allergies Allergy/AdvReac Type Severity Reaction Status Date / Time No Known Allergies Allergy Verified 12/09/18 19:28 Home Medications: Ambulatory Orders Diazepam [Valium] 2 mg PO HS PRN #4 tablet MDD 2mg 09/02/18 Levetiracetam 750 mg PO BID #60 tablet 09/02/18 Nortriptyline HCl [Pamelor -] 25 mg PO DAILY #30 capsule 09/02/18 Asthma: No Cancer: No Cardiac Disorders: No COPD: No Diabetes: No HTN: No Seizures: No Thyroid Disease: No - Surgical History Neurologic Surgery: Yes - Immunization History Immunization Up to Date: Yes - Suicide/Smoking/Psychosocial Hx Smoking History: Never smoked Have you smoked in the past 12 months: No Hx Alcohol Use: No Drug/Substance Use Hx: No Substance Use Type: None Hx Substance Use Treatment: No Review of Systems - Review of Systems Constitutional: Yes: Other (lapse in time with 20 min confusion resolved). No: Chills, Fever HEENTM: No: Blurred Vision, Double Vision Respiratory: No: Shortness of Breath Cardiac (ROS): No: Chest Pain, Edema ABD/GI: No: Constipated, Diarrhea, Nausea, Vomiting : No: Burning, Dysuria, Frequency, Flank Pain Integumentary: No: Change in Color Neurological: Yes: Headache (chronic), Weakness (generalized). No: Numbness, Paresthesia, Unsteady Gait, Ataxia *Physical Exam - Vital Signs Last Vital Signs Temp Pulse Resp BP Pulse Ox 98.4 F 61 90 H 156/84 100 12/09/18 19:29 12/09/18 19:29 12/09/18 19:29 12/09/18 19:29 12/09/18 19:29 - Physical Exam General Appearance: Yes: Nourished, Appropriately Dressed. No: Apparent Distress HEENT: positive: EOMI, NILE, Hearing Grossly Normal. negative: Scleral Icterus (R), Scleral Icterus (L) Neck: positive: Supple. negative: Carotid bruit Respiratory/Chest: positive: Lungs Clear, Normal Breath Sounds. negative: Respiratory Distress, Accessory Muscle Use, Crackles, Rales, Rhonchi, Stridor, Wheezing Cardiovascular: positive: Regular Rhythm, Regular Rate, S1, S2. negative: Edema , JVD, Murmur Vascular Pulses: Dorsalis-Pedis (R): 4+, Doralis-Pedis (L): 4+ Gastrointestinal/Abdominal: positive: Flat, Soft. negative: Pulsatile Mass, Protuberent, Distended, Guarding, Rebound, Tenderness Musculoskeletal: negative: CVA Tenderness Extremity: positive: Normal Capillary Refill, Normal Inspection, Normal Range of Motion Integumentary: positive: Normal Color, Dry, Warm Neurologic: positive: corn popper II-XII NML intact, Fully Oriented, Alert, Normal Mood/ Affect, Normal Response, Motor Strength 5/5, Other (normal rapid ulternating movements, no drift). negative: Facial Droop, Numbness, Sensory Deficit, Finger to Nose (normal), Confused, Disoriented ED Treatment Course - LABORATORY CBC & Chemistry Diagram: 12/09/18 21:10 12/09/18 21:10 - RADIOLOGY Radiology Studies Ordered: Category Date Time Status CERVICAL SPINE CT W/O CONTR [CT] Stat CT Scan 12/09/18 20:[address] WITHOUT CONTRAST [CT] Stat CT Scan 12/09/18 20:21 Ordered Medical Decision Making - Medical Decision Making 12/09/18 21:53 23 yo female pmh brain abscess s/p crainectomy, prior seizures, migraine headache, who presented to the hospital after possible unwitnessed seizure. Pt states while taking a bath there was a loss of time, found by who states she appeared confused for 20 min and in a similar state a her last seizure 08/2018 for which she was admitted. Pt DC on Keppra, pt non complaint and states it has been 2 months since she last too her medications. Pt has a hx of chronic headaches, seen by Neurology and MENDOZA not relieved by treatments. MENDOZA today is of the same quality and intensity as past MENDOZA without changes in vision , neck stiffniess, weakness on 1 side of her body, N/V/F/C, current confusion. Pt AOX3, reports normal mentation at this time. vitals WNL DDX INLT: seizure, toxic/metabolic, infection, stroke Pending head and Neck CT for unwitnessed seizure with possible injury (no obvious injury on exam) Pending labs Discussed case with Dr. Perkins who is covering for pt Primary Neurologist (Dr. Granados) recommends obs with 1G Keppra load and Neurology consult S/O to night team for imaging interpretation and admission *DC/Admit/Observation/Transfer Diagnosis at time of Disposition: Seizure - Referrals - Patient Instructions - Post Discharge Activity
--- NOTE | 2018-12-09 21:10 | PDOC ---
Documentation entered by Matt Hooker SCRIBE, acting as scribe for Raiza Ramos DO. Raiza Ramos DO: This documentation has been prepared by the Morro herrera Daniel, SCRIBE, under my direction and personally reviewed by me in its entirety. I confirm that the documentation accurately reflects all work, treatment, procedures, and medical decision making performed by me. Attending Attestation - Resident Resident Name: BrittanyaleidaAndrea - ED Attending Attestation I have performed the following: I have examined & evaluated the patient, The case was reviewed & discussed with the resident, I agree w/resident's findings & plan, Exceptions are as noted - HPI HPI: 12/09/18 21:03 The patient is a 23 year old female with a past medical history of brain abscess s/p crainectomy, prior seizures, and migraine headache here today for evaluation of a witnessed seizure. The patient reports that her last seizure was 09/09 and that she is non compliant with her Keppra. She notes having a migraine today and remembers getting into the bathtub but doesnt remember anything after that. The patients reports finding her in the tub and states that she was completely unresponsive. Patient also notes some weakness, warmth, and diaphoresis. Patient denies headache, lightheadedness. Denies fever, chills. Denies chest pain, shortness of breath. Denies nausea, vomiting, diarrhea, abdominal pain. Allergies: NKA - Physicial Exam PE: 12/09/18 21:03 Constitutional: Awake, alert, oriented. No acute distress. Head: Normocephalic. Atraumatic Eyes: PERRL. EOMI. Conjunctivae are not pale. ENT: Mucous membranes are moist and intact. Posterior pharynx without exudates or erythema. Uvula midline. Neck: Supple. Full ROM. No lymphadenopathy. Cardiovascular: Regular rate. Regular rhythm. S1, S2 regular. Distal pulses are 2+ and symmetric. Pulmonary/Chest: No evidence of respiratory distress. Clear to auscultation bilaterally No wheezing, rales or rhonchi. Abdominal: Soft and non-distended. There is no tenderness. No rebound, guarding or rigidity. No organomegaly. No palpable masses. Good bowel sounds. Back: No CVA tenderness. Musculoskeletal: No edema. No cyanosis. No clubbing. Full range of motion in all extremities. No calf tenderness. Radial/pedal pulses are intact and 2+ bilaterally Skin: Skin is warm and dry. No petechiae. No purpura. Neurological: Alert and oriented to person, place, and time. Cranial nerves II -XII are grossly intact. Normal speech. Strength is grossly symmetric. No sensory deficits. Psychiatric: Good eye contact. Normal interaction, affect and behavior. - Medical Decision Making 12/09/18 21:06 I, Dr. Raiza Ramos, DO, attest that this document has been prepared under my direction and personally reviewed by me in its entirety. I further attest, that it accurately reflects all work, treatment, procedures and medical decision -making performed by me. a/p: 23yo female with hx of migraines and seizures-noncompliant with her meds with poss seizure tonight -pt was found unresponsive in her tub -pt does not remember aura, but states worse migraine she has had in a while -follows with [facility] for pmd and neuro -pt arrives awake, alert -c/o nguyen -no cp/sob -no abd pain - found her in the tub unresponsive -labs, head ct, keppra load will be given -will give ivf hydration -will monitor and reassess 12/10/18 00:[address]: No acute brain parenchymal abnormality. No hemorrhage, mass or acute territorial infarct. Encephalomalacia bilateral frontal lobes, also present on 09/01/18. Bilateral frontotemporal craniotomies. Mucus retention cyst right ethmoid sinus. Visualized mastoid air cells clear. C-spine CT: No acute fracture or malalignment. 12/10/18 00:24 no acute findings on ct microblog sent to [facility] for further eval of syncope vs seizure 12/10/18 01:05 case discussed with [facility] who accepts pt to service *DC/Admit/Observation/Transfer Diagnosis at time of Disposition: Seizure, Migraine headache, Syncope - Discharge Dispostion Condition at time of disposition: Fair Decision to Admit order: Yes - Referrals - Patient Instructions - Post Discharge Activity Heart Score/ECG Review - [place] Comment: 12/10/18 00:11 sinus gordy at 56, nl axis, nl interval, no acute st/t wave findings
[2018-12-09 21:33] LABS: BASO % 0.2 % (0-2.0); HEMOGLOBIN 13.4 GM/dL (10.7-15.3); LYMPH % 5.3 % (8-40); MCH 30.6 pg (25.7-33.7); MCHC 32.6 g/dl (32.0-36.0); MEAN CELL VOLUME 93.7 fl (80-96); MEAN PLT VOLUME 10.4 fl (7.5-11.1); MONO % 2.7 % (3.8-10.2); NEUT % 91.8 % (42.8-82.8); PLATELET COUNT 176 K/MM3 (134-434); RBC 4.38 M/mm3 (3.60-5.2); RDW 15.6 % (11.6-15.6); WHITE BLOOD COUNT 11.1 K/mm3 (4.0-10.0)
[2018-12-09 21:51] LABS: HYALINE CASTS 12 /lpf (0-8); URINE APPEARANCE CLOUDY; URINE BACTERIA 91.3 /hpf (NEGATIVE); URINE BILIRUBIN NEGATIVE (NEGATIVE); URINE COLOR YELLOW; URINE GLUCOSE (UA) NEGATIVE (NEGATIVE); URINE KETONE TRACE (NEGATIVE); URINE LEUK ESTERASE NEGATIVE (NEGATIVE); URINE NITRITE NEGATIVE (NEGATIVE); URINE PROTEIN 2+ (NEGATIVE); URINE RBC 1 /hpf (0-4); URINE UROBILINOGEN 0.2 mg/dL (0.2-1.0); URINE WBC 2 /hpf (0-5)
[2018-12-09] MEDS ORDERED: METOCLOPRAMIDE HCL INJECTION 10 MG/2 ML VIAL IVPUSH ONE (21:54)
[2018-12-09] MEDS ORDERED: SODIUM CHLORIDE 1,000 ML IV STA (21:54)
[2018-12-09] MEDS ORDERED: ACETAMINOPHEN 1000 MG/100 ML VIAL (NON FORMULARY) IVPB ONE (21:54)
[2018-12-09 22:02] LABS: ALBUMIN 4.8 g/dl (3.4-5.0); BILIRUBIN,TOTAL 0.2 mg/dL (0.2-1); BLOOD UREA NITROGEN 15.2 mg/dL (7-18); CALCIUM 9.6 mg/dL (8.5-10.1); CREATININE 0.9 mg/dL (0.55-1.3); POTASSIUM 4.6 mmol/L (3.5-5.1); TOT PROT 8.6 g/dl (6.4-8.2)
[2018-12-09] MEDS ORDERED: ACETAMINOPHEN INJECTION 100 ML IVPB ONE (22:05)
[2018-12-09] MEDS ORDERED: METOCLOPRAMIDE HCL INJECTION 10 MG/2 ML VIAL ONE (22:05)
[2018-12-09 23:14] LABS: PLATELET ESTIMATE ADEQUATE
[2018-12-10 01:17] LABS: MAGNESIUM 2.3 mg/dL (1.8-2.4)
--- NOTE | 2018-12-10 01:41 | HP ---
CHIEF COMPLAINT: seizure episode and migraines PCP: Dr. Adriano Granados HISTORY OF PRESENT ILLNESS: Adrienne Rodriguez is a 23 year old female with a past medical history of brain abscess s/p craniotomy, prior seizures, daily migraine headaches presented to the ED for a likely seizure episode. Previous known seizure was in August for which she was admitted to this hospital. The patient stated that at the time she was placed on Keppra however she did not like side effects and stopped taking the medication 2 months ago. She stated that she has also been on a number of different anti-migraine prophylaxis medications throughout the years and she stated that she did not like those side effects so stopped taking those medications as well. She notes that she has migraines on a daily basis and describes them as pulsating headaches associated with nausea, chills, some abdominal pain. On day of admission, the patient had a migraine headache for which she took an Excedrin and then went into the bathroom to take a bath. She was in the bath and then had a loss of time before being woken up by her and EMS. She denies any prodromal symptoms of visual hallucinations, bright lights, ringing bells, tinnitus, focal shaking, feeling of impending doom. did not witness any tonic clonic shaking when he found the patient and patient denies that the noted any foaming at the mouth, bleeding from the mouth. noted to the patient that he found her with the bathtub water up to her face, she was confused and difficult to orient when she awoke from the episode. Denied recent chest pain, shortness of breath, fever , visual changes, hearing changes, constipation, diarrhea, numbness, tingling, focal weakness, dysuria, frequency, hesitancy, incomplete emptying. Patient stated she smokes marijuana twice daily. Denies sick contacts, recent travel, recent trauma, recent head hit, recent drug intoxication. Stated has good appetite. 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 Family History: denies significant family history Allergies No Known Allergies Allergy (Verified 12/09/18 19:28) HOME MEDICATIONS: Home Medications Medication Instructions Recorded Diazepam [Valium] 2 mg PO HS PRN #4 tablet MDD 2mg 09/02/18 Levetiracetam 750 mg PO BID #60 tablet 09/02/18 Nortriptyline HCl [Pamelor -] 25 mg PO DAILY #30 capsule 09/02/18 REVIEW OF SYSTEMS CONSTITUTIONAL: chills, generalized weakness Absent: fever, diaphoresis, malaise, loss of appetite, HEENT: nasal congestion (chronic) Absent: rhinorrhea, throat pain, throat swelling, difficulty swallowing, visual changes CARDIOVASCULAR: Absent: chest pain, syncope, palpitations, irregular heart rate, lightheadedness , peripheral edema RESPIRATORY: Absent: cough, shortness of breath, dyspnea with exertion, orthopnea, wheezing, GASTROINTESTINAL: nausea Absent: abdominal pain, abdominal distension, vomiting, diarrhea, constipation, GENITOURINARY: Absent: dysuria, frequency, urgency, hesitancy, hematuria, flank pain, MUSCULOSKELETAL: Absent: myalgia, arthralgia, joint swelling, back pain, neck pain SKIN: Absent: rash, itching, pallor HEMATOLOGIC/IMMUNOLOGIC: Absent: easy bleeding, easy bruising, lymphadenopathy, frequent infections ENDOCRINE: Absent: unexplained weight gain, unexplained weight loss, heat intolerance, cold intolerance NEUROLOGIC: headache, seizure, confusion Absent: focal weakness or paresthesias, dizziness, unsteady gait, mental status changes, bladder or bowel incontinence PSYCHIATRIC: Absent: anxiety, depression, suicidal or homicidal ideation, hallucinations. PHYSICAL EXAMINATION Vital Signs - 24 hr 12/09/18 12/09/18 19:29 21:02 Temperature 98.4 F Pulse Rate 61 Respiratory 90 H 18 Rate Blood Pressure 156/84 O2 Sat by Pulse 100 Oximetry (%) GENERAL: Awake, alert, and fully oriented, in no acute distress. HEAD: Normal with no signs of trauma. EYES: Pupils equal, round and reactive to light, extraocular movements intact, sclera anicteric, conjunctiva clear. EARS, NOSE, THROAT: Oropharynx clear without exudates. Moist mucous membranes. NECK: Normal range of motion, supple without lymphadenopathy, JVD.. LUNGS: Breath sounds equal, clear to auscultation bilaterally. No wheezes, and no crackles. No accessory muscle use. HEART: Regular rate and rhythm, normal S1 and S2 without murmur, rub. ABDOMEN: Soft, nontender, not distended, normoactive bowel sounds, no guarding, no rebound, no masses. MUSCULOSKELETAL: Normal range of motion at all joints. No bony deformities or tenderness. No CVA tenderness. UPPER EXTREMITIES: 2+ pulses, warm, well-perfused. No cyanosis. No clubbing. No peripheral edema. LOWER EXTREMITIES: 2+ pulses, warm, well-perfused. No calf tenderness. No peripheral edema. NEUROLOGICAL: Cranial nerves II-XII intact. 5/5 muscle strength upper and lower extremities. Sensation intact to gross touch upper and lower extremities. Finger to nose intact, heel to malhotra intact. PSYCHIATRIC: Cooperative. Good eye contact. Appropriate mood and affect. SKIN: Warm, dry, normal turgor, no rashes or lesions noted, normal capillary refill. Laboratory Results - last 24 hr 12/09/18 12/09/18 12/09/18 20:51 20:51 21:10 WBC 11.1 H RBC 4.38 Hgb 13.4 Hct 41.0 MCV 93.7 MCH 30.6 MCHC 32.6 RDW 15.6 D Plt Count 176 MPV 10.4 Absolute Neuts (auto) 10.2 H Total Counted 100 Neutrophils % 91.8 H Neutrophils % (Manual) 92.0 H Band Neutrophils % 2.0 Lymphocytes % 5.3 L D Lymphocytes % (Manual) 3.0 L D Monocytes % 2.7 L Monocytes % (Manual) 3 L D Eosinophils % 0.0 D Basophils % 0.2 Nucleated RBC % 0 Platelet Estimate Adequate Sodium Potassium Chloride Carbon Dioxide Anion Gap BUN Creatinine Est GFR (CKD-EPI)AfAm Est GFR (CKD-EPI)NonAf Random Glucose Calcium Magnesium Total Bilirubin AST ALT Alkaline Phosphatase Total Protein Albumin Urine Color Yellow Urine Appearance Cloudy Urine pH 5.0 Ur Specific [place] 1.025 Urine Protein 2+ H Urine Glucose (UA) Negative Urine Ketones Trace H Urine Blood Negative Urine Nitrite Negative Urine Bilirubin Negative Urine Urobilinogen 0.2 Ur Leukocyte Esterase Negative Urine WBC (Auto) 2 Urine RBC (Auto) 1 Urine Casts (Auto) 12 U Epithel Cells (Auto) 8.0 Urine Bacteria (Auto) 91.3 Urine HCG, Qual Negative 12/09/18 21:10 WBC RBC Hgb Hct MCV MCH MCHC RDW Plt Count MPV Absolute Neuts (auto) Total Counted Neutrophils % Neutrophils % (Manual) Band Neutrophils % Lymphocytes % Lymphocytes % (Manual) Monocytes % Monocytes % (Manual) Eosinophils % Basophils % Nucleated RBC % Platelet Estimate Sodium 135 L Potassium 4.6 Chloride 103 Carbon Dioxide 26 Anion Gap 6 L BUN 15.2 Creatinine 0.9 Est GFR (CKD-EPI)AfAm 105.93 Est GFR (CKD-EPI)NonAf 91.40 Random Glucose 123 H Calcium 9.6 Magnesium 2.3 Total Bilirubin 0.2 AST 25 ALT 29 Alkaline Phosphatase 114 Total Protein 8.6 H Albumin 4.8 Urine Color Urine Appearance Urine pH Ur Specific [place] Urine Protein Urine Glucose (UA) Urine Ketones Urine Blood Urine Nitrite Urine Bilirubin Urine Urobilinogen Ur Leukocyte Esterase Urine WBC (Auto) Urine RBC (Auto) Urine Casts (Auto) U Epithel Cells (Auto) Urine Bacteria (Auto) Urine HCG, Qual EKG--> sinus bradycardia with sinus arrhythmia, no ST segment changes, QTc 414 ASSESSMENT/PLAN: Adrienne Rodriguez is a 23 year old female with a past medical history of brain abscess s/p craniotomy, prior seizures, daily migraine headaches admitted after a likely seizure episode. Seizure Episode Migraine headaches Seizure Episode - likely in the setting of not taking her seizure medications and concurrent migraine headaches - electrolytes within normal limits - CT as above with no acute pathology - neurology consulted - loaded with Keppra 1000mg - continue last dose of Keppra 500mg bid - Keppra level ordered - Utox ordered - seizure and fall precautions - neurochecks - will likely need outpatient EEG and MRI f/u - chest x-ray to evaluate for aspiration as patient found in bathtub during acute episode - encouraged to be compliant with seizure medications, may need to switch to different medication if she dislikes Keppra side effects despite Keppra having preferable side effect profile to most AEDs - counseled on seizure safety, no bath tubs, no ladders, no swimming unattended , no driving Migraine Headaches - resume home nortryptyline and topiramate - will need adequate outpatient f/u for preventative management of migraines - encourage not to use Excedrin daily as this may cause withdrawal headaches FEN - no standing fluids, encourage oral hydration - continue to monitor electrolytes and replete as necessary - Regular diet Prophylaxis - heparin 5000 units subq tid Code - full code TENNILLE GORDON DO - PGY-1 Visit type - Emergency Visit Emergency Visit: Yes ED Registration Date: 12/10/18 Care time: The patient presented to the Emergency Department on the above date and was hospitalized for further evaluation of their emergent condition. - New Patient This patient is new to me today: Yes Date on this admission: 12/10/18 - Critical Care Critical Care patient: No
[2018-12-10] MEDS ORDERED: HEPARIN NA (PORCINE) 5,000 UNITS/ML 1ML VIAL SQ SCH (06:00)
[2018-12-10] MEDS ORDERED: HEPARIN NA (PORCINE) 5,000 UNITS/ML 1ML VIAL ONE (06:23)
--- NOTE | 2018-12-10 06:55 | PN ---
Teaching Attending Note Name of Resident: Rafiq Gregory ATTENDING PHYSICIAN STATEMENT I saw and evaluated the patient. I reviewed the resident's note and discussed the case with the resident. I agree with the resident's findings and plan as documented. SUBJECTIVE: 23 year old female with a past medical history of brain abscess s/p craniotomy, prior seizures, daily migraine headaches presented for a likely seizure episode. She was at home, found in bathtub by her , confused on 12/09. Unable to recall what happened. Admitted this past August for likely seizure episode. Patient noncompliant with her Keppra because it makes her drowsy. OBJECTIVE: Last Vital Signs Temp Pulse Resp BP Pulse Ox 98.6 F 55 L 14 117/56 L 96 12/10/18 03:30 12/10/18 03:30 12/10/18 03:30 12/10/18 03:30 12/10/18 03:30 gen -awake, alert heent- no tongue biting cv-s1+s2+rrr chest -clear b/l skin - no rashes Abnormal Lab Results 12/09/18 12/09/18 12/09/18 20:51 21:10 21:10 WBC 11.1 H Absolute Neuts (auto) 10.2 H Neutrophils % 91.8 H Neutrophils % (Manual) 92.0 H Lymphocytes % 5.3 L D Lymphocytes % (Manual) 3.0 L D Monocytes % 2.7 L Monocytes % (Manual) 3 L D Sodium 135 L Anion Gap 6 L Random Glucose 123 H Total Protein 8.6 H Urine Protein 2+ H Urine Ketones Trace H Imaging reviewed ASSESSMENT AND PLAN: seizure episode likely secondary to noncompliance with her Keppra. Underlying cause of seizures is likely prior brain abscess which was drained. Head CT without any significant changes from old- b/l frontal lobe encephalomalacia. Previously seen by Dr. Hogan. -med/surg -if fluids -neuro consult -keppra 500mg po bid -dvt ppx #Leukocytosis- likely reactive -no antibioitics -trend cbc -dvt ppx
[2018-12-10] MEDS ORDERED: TOPIRAMATE 25 MG TABLET (FP) PO SCH (10:00)
[2018-12-10] MEDS ORDERED: levETIRAcetam 500 MG TABLET (FP) PO SCH (10:00)
[2018-12-10] MEDS ORDERED: NORTRIPTYLINE HCL 25 MG CAPSULE PO SCH (10:00)
--- NOTE | 2018-12-10 10:38 | EKG ---
Test Reason : Blood Pressure : / mmHG Vent. Rate : 056 BPM Atrial Rate : 056 BPM P-R Int : 162 ms QRS Dur : 090 ms QT Int : 430 ms P-R-T Axes : 072 028 035 degrees QTc Int : 414 ms SINUS BRADYCARDIA WITH SINUS ARRHYTHMIA OTHERWISE NORMAL ECG WHEN COMPARED WITH ECG OF 31-AUG-2018 23:39, NO SIGNIFICANT CHANGE WAS FOUND Confirmed by ENOCH SAVAGE MD ([id number]) on 12/10/2018 10:38:32 AM Referred By: Confirmed By:ENOCH SAVAGE MD
--- NOTE | 2018-12-10 16:01 | PN ---
Teaching Attending Note Name of Resident: Dawson Snell ATTENDING PHYSICIAN STATEMENT I saw and evaluated the patient. I reviewed the resident's note and discussed the case with the resident. I agree with the resident's findings and plan as documented. Seen and examined; in summation this patient is presenting for a seizure secondary to medication noncompliance. She had no further seizure activity adn can be discharged home. She was continued on her home seizure medication. Neurology is in agreement with [place]. She can followup OP with her own neurologist or in clinic with Dr. Sen per instructions. She does not drive or operate heavy machinery. She was counseled when to return to the ER. She has no other complaints VS, labs, imaging reviewed NAD, AAO, resting in bed RRR s1/2 NC AT EOMI PERRLA CN2-12 wnl, no fnd, moves all 4 extremities, normal sensorium, normal reflexes, normal speech Normal mood, appropriate behavior. All diagnostics reviewed with resident team Problems Include: -Seizure 2/2 medication noncompliance -Medication noncompliance -Reactive leukocytosis -Hx brain abscess leading to seizure history Discharge meds: NO CHANGES; counseled regarding compliance Dispo: Home Followup: -PCP 3-5 days -Neurology per instructions Full Code
[2018-12-10 16:36] VITALS: BP 119/85; PULSE 64; TEMP 98.3
--- NOTE | 2018-12-11 08:17 | CON.NEURO ---
Consult - Past Medical History ACCOUNTANT: Yes: Seizure - Past Surgical History Past Surgical History: Yes: - Alcohol/Substance Use Hx Alcohol Use: No History of Substance Use: reports: Marijuana (bid smoking) - Smoking History Smoking history: Never smoked Have you smoked in the past 12 months: No - Social History ADL: Independent History of Recent Travel: No Home Medications - Allergies Allergies/Adverse Reactions: Allergies Allergy/AdvReac Type Severity Reaction Status Date / Time No Known Allergies Allergy Verified 12/09/18 19:28 - Home Medications Home Medications: Ambulatory Orders Diazepam [Valium] 2 mg PO HS PRN #4 tablet MDD 2mg 09/02/18 Nortriptyline HCl [Pamelor -] 25 mg PO DAILY #30 capsule 09/02/18 Famotidine [Pepcid] 20 mg PO HS 12/10/18 Indomethacin 50 mg PO BID 12/10/18 Propranolol HCl 60 mg PO DAILY 12/10/18 Topiramate 25 mg PO DAILY 12/10/18 levETIRAcetam [Keppra -] 500 mg PO BID #60 tablet 12/10/18 Physical Exam-Neuro Vital Signs: Vital Signs Temperature 98.3 F 12/10/18 16:00 Pulse Rate 64 12/10/18 16:00 Respiratory Rate 18 12/10/18 16:00 Blood Pressure 119/85 12/10/18 16:00 O2 Sat by Pulse Oximetry (%) 98 12/10/18 09:00 Labs: CBC, BMP 12/09/18 21:10 12/09/18 21:10 Assessment/Plan cc Breakthrough seizure HPI 23 year old female history of brain abscess s/p craniotomy at age of 13, epilepsy, heahdce. She has been on keppra , but not taking medication. She is known to me in hospital. Evangelina went to take a shower and did not know what happen, she woke up in hospital. patient has not been taking keppra as prescribed. Patient denies any tongue bite or incontinence. Patient has ct head, no acute findings, there is no fever, no new focal neurological syptoms. PAST MEDICAL HISTORY: as above PAST SURGICAL HISTORY: Craniotomy for brain abscess drainage Social History: Smoking: denies Alcohol: denies Drugs: 2x daily marijuana use Lives with and son. Family History: denies significant family history Allergies No Known Allergies Allergy (Verified 12/09/18 19:28) HOME MEDICATIONS: Home Medications Medication Instructions Recorded Diazepam [Valium] 2 mg PO HS PRN #4 tablet MDD 2mg 09/02/18 Levetiracetam 750 mg PO BID #60 tablet 09/02/18 Nortriptyline HCl [Pamelor -] 25 mg PO DAILY #30 capsule 09/02/18 ROS,FH,SH reviewed in chart NEUROLOGICAL EXAMINATION Alert oriented x 3, neck is supple, vss, afebrile eomi, pupils reactive no face asymmetry moving all ext sensation is normal ( Neuro exam essentially non focal) ct head unremarkable Assessment/pLAN 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
--- NOTE | 2018-12-11 13:44 | DS ---
Physical Exam: SUBJECTIVE: Patient seen and examined at bedside. OBJECTIVE: Vital Signs Period Temp Pulse Resp BP Sys/Taylor Pulse Ox Last 24 Hr 98.3 F 64 18 119/85 PHYSICAL EXAM GENERAL: Awake, alert, and fully oriented, in no acute distress. HEAD: Normal with no signs of trauma. EYES: Pupils equal, round and reactive to light, extraocular movements intact, sclera anicteric, conjunctiva clear. EARS, NOSE, THROAT: Oropharynx clear without exudates. Moist mucous membranes. NECK: Normal range of motion, supple without lymphadenopathy, JVD.. LUNGS: Breath sounds equal, clear to auscultation bilaterally. No wheezes, and no crackles. No accessory muscle use. HEART: Regular rate and rhythm, normal S1 and S2 without murmur, rub. ABDOMEN: Soft, nontender, not distended, normoactive bowel sounds, no guarding, no rebound, no masses. MUSCULOSKELETAL: Normal range of motion at all joints. No bony deformities or tenderness. No CVA tenderness. UPPER EXTREMITIES: 2+ pulses, warm, well-perfused. No cyanosis. No clubbing. No peripheral edema. LOWER EXTREMITIES: 2+ pulses, warm, well-perfused. No calf tenderness. No peripheral edema. NEUROLOGICAL: Cranial nerves II-XII intact. 5/5 muscle strength upper and lower extremities. Sensation intact to gross touch upper and lower extremities. Finger to nose intact, heel to malhotra intact. PSYCHIATRIC: Cooperative. Good eye contact. Appropriate mood and affect. SKIN: Warm, dry, normal turgor, no rashes or lesions noted, normal capillary refill. LABS HOSPITAL COURSE: Date of Admission:12/10/18 Date of Discharge: 12/11/18 Adrienne Rodriguez is a 23 year old female with a past medical history of brain abscess s/p craniotomy, prior seizures, daily migraine headaches admitted after a likely seizure episode. The Seizure Episode was felt to be due to noncompliance with her AEDs. Electrolytes were within normal limits, CT was with no acute pathology, neurology was consulted. She was loaded with and maintained on Keppra. She was counselled heavily on the importance of medication compliance. For her Migraine Headaches, she was maintained on home nortryptyline and topiramate. Minutes to complete discharge: 30 Discharge Summary Reason For Visit: MIGRAINE HEADACHE, SEIZURE, SYNCOPE Condition: Good - Instructions Diet, Activity, Other Instructions: You were in the hospital because of a seizure. You need to follow up with your neurologist, Dr. Antunez within 3-5days. If you are not able to see your neurologist, you can see Dr. Sen, neurology. You are being discharged with the following medications: Keppra 500mg twice daily It is very important that you take your prescribed medications. If you have an issue with your medication, you need to make an appointment with your doctor. Referrals: Pradeep Sen MD [Staff Physician] - 1 Week Adriano Granados MD [Non Staff, Medical] - 1 Week Disposition: HOME - Home Medications Comprehensive Discharge Medication List: Ambulatory Orders Diazepam [Valium] 2 mg PO HS PRN #4 tablet MDD 2mg 09/02/18 Nortriptyline HCl [Pamelor -] 25 mg PO DAILY #30 capsule 09/02/18 Famotidine [Pepcid] 20 mg PO HS 12/10/18 Indomethacin 50 mg PO BID 12/10/18 Propranolol HCl 60 mg PO DAILY 12/10/18 Topiramate 25 mg PO DAILY 12/10/18 levETIRAcetam [Keppra -] 500 mg PO BID #60 tablet 12/10/18 This patient is new to me today: No Emergency Visit: No Critical Care patient: No - Discharge Referral [facility]erred to [facility] Med [facility].C[facility] No ATTENDING PHYSICIAN STATEMENT I saw and evaluated the patient. I reviewed the resident's note and discussed the case with the resident. I agree with the resident's findings and plan as documented. SUBJECTIVE: OBJECTIVE: ASSESSMENT AND PLAN:
== END 2018-12-10 16:00 | disposition home or self-care (01) ==
LOC: JER 19:24 → JERBED 12-10 00:25
PROVIDERS: ADMIT Internal Medicine; ATTEND Internal Medicine
PROC: 3E033NZ Introduction of Analgesics, Hypnotics, Sedatives into Peripheral Vein, Percutaneous Approach (ICD-10-PCS; principal; 2018-12-10)
PROC: 3E0337Z Introduction of Electrolytic and Water Balance Substance into Peripheral Vein, Percutaneous Approach (ICD-10-PCS; 2018-12-10)
PROC: 3E033GC Introduction of Other Therapeutic Substance into Peripheral Vein, Percutaneous Approach (ICD-10-PCS; 2018-12-10)
PROC: 3E013GC Introduction of Other Therapeutic Substance into Subcutaneous Tissue, Percutaneous Approach (ICD-10-PCS; 2018-12-10)
DX: G40.802 Other epilepsy, not intractable, without status epilepticus (principal); G43.909 Migraine, unspecified, not intractable, without status migrainosus; R55 Syncope and collapse; Z86.61 Personal history of infections of the central nervous system; Z91.14 Patient's other noncompliance with medication regimen
CPT/HCPCS: 36415; 70450-TC; 71046-TC-FY; 72125-TC; 80053; 80177; 81003; 83735; 84703; 85025; 93005; 93010; 99285-25; G0378; J0131; J1644; J7030

== ENCOUNTER 2019-05-18 01:51 | Emergency (ER) | payer OTHER ==
[2019-05-18 01:58] VITALS: BP 98/70; PULSE 93; BMI 21.6
[2019-05-18] MEDS ORDERED: SODIUM CHLORIDE 0.9% 1000 ML INFUS.BAG IV ONE (02:11)
[2019-05-18] MEDS ORDERED: levETIRAcetam 500 MG/5 ML INJECTION VIAL IVPB ONE ×2 (02:20→03:27)
[2019-05-18 03:22] LABS: BASO % 0.4 % (0-2.0); EOS % 0.2 % (0-4.5); HEMATOCRIT 38.1 % (32.4-45.2); HEMOGLOBIN 12.7 GM/dL (10.7-15.3); LYMPH % 11.4 % (8-40); MCH 30.1 pg (25.7-33.7); MCHC 33.3 g/dl (32.0-36.0); MEAN CELL VOLUME 90.3 fl (80-96); MEAN PLT VOLUME 10.6 fl (7.5-11.1); MONO % 4.8 % (3.8-10.2); NEUT % 83.2 % (42.8-82.8); PLATELET COUNT 154 K/MM3 (134-434); RBC 4.22 M/mm3 (3.60-5.2); RDW 16.5 % (11.6-15.6)
--- NOTE | 2019-05-18 03:38 | PDOC ---
History of Present Illness - General Chief Complaint: Seizure Stated Complaint: SEIZURE Time Seen by Provider: 05/18/19 02:02 History Source: Patient Exam Limitations: No Limitations - History of Present Illness Initial Comments: 05/18/19 03:33 23-year-old female with a past medical history of seizures, noncompliant with Keppra, who presents to the ER with her after he witnessed her having a seizure in her sleep. states that she had full body tonic-clonic movements. She denies tongue biting or urinating on herself. She denies falling off her bed. She denies lack of sleep. She denies alcohol use. She admits to marijuana use. She states that she does not take her anti-epiliptic medications because it makes her not feel well. She is unsure who her neurologist is. She denies any other acute complaints. Past History - Past Medical History Allergies/Adverse Reactions: Allergies Allergy/AdvReac Type Severity Reaction Status Date / Time No Known Allergies Allergy Verified 05/18/19 01:55 Home Medications: Ambulatory Orders Diazepam [Valium] 2 mg PO HS PRN #4 tablet MDD 2mg 09/02/18 Nortriptyline HCl [Pamelor -] 25 mg PO DAILY #30 capsule 09/02/18 Famotidine [Pepcid] 20 mg PO HS 12/10/18 Indomethacin 50 mg PO BID 12/10/18 Propranolol HCl 60 mg PO DAILY 12/10/18 Topiramate 25 mg PO DAILY 12/10/18 levETIRAcetam [Keppra -] 500 mg PO BID #60 tablet 12/10/18 levETIRAcetam [Keppra -] 500 mg PO BID #14 tablet 05/18/19 Asthma: No Cancer: No Cardiac Disorders: No COPD: No Diabetes: No HTN: No Seizures: Yes Thyroid Disease: No - Surgical History Neurologic Surgery: Yes - Immunization History Immunization Up to Date: Yes - Psycho Social/Smoking Cessation Hx Smoking History: Never smoked Have you smoked in the past 12 months: No Hx Alcohol Use: No Drug/Substance Use Hx: No Substance Use Type: None Hx Substance Use Treatment: No Review of Systems - Review of Systems Able to Perform ROS?: Yes Comments:: 05/18/19 03:34 GENERAL/CONSTITUTIONAL: No fever or chills. No weakness. HEAD, EYES, EARS, NOSE AND THROAT: No change in vision. No ear pain or discharge. No sore throat. CARDIOVASCULAR: No chest pain, palpitations, or lightheadedness. RESPIRATORY: No cough, wheezing, shortness of breath, or hemoptysis. GASTROINTESTINAL: No abdominal pain, nausea, vomiting, diarrhea, or constipation. GENITOURINARY: No dysuria, frequency, hematuria, or change in urination. MUSCULOSKELETAL: No joint or muscle swelling or pain. No neck or back pain. SKIN: No rash or lesions. NEUROLOGIC: + for seizures. No headache, numbness, tingling, focal weakness, loss of consciousness, or change in strength/sensation. Is the patient limited Togolese proficient: No *Physical Exam - Vital Signs Last Vital Signs Temp Pulse Resp BP Pulse Ox 93 H 18 98/70 100 05/18/19 01:53 05/18/19 01:53 05/18/19 01:53 05/18/19 01:53 - Physical Exam 05/18/19 03:34 GENERAL: Well developed, well nourished. Awake and alert. No acute distress. HEENT: Normocephalic, atraumatic. Hearing grossly normal. Moist mucous membranes. PERRLA, EOMI. No conjunctival pallor. Sclera are non-icteric. NECK: Supple. Full ROM. No JVD. CARDIOVASCULAR: Regular rate and rhythm. No murmurs, rubs, or gallops. PULMONARY: No evidence of respiratory distress. Lungs clear to auscultation bilaterally. No wheezing, rales, or rhonchi. ABDOMINAL: Soft. Non-tender. Non-distended. No rebound or guarding. GENITOURINARY: No CVA tenderness bilaterally. MUSCULOSKELETAL: Normal range of motion at all joints. No bony deformities or tenderness. EXTREMITIES: No cyanosis. No clubbing. No edema. No calf tenderness or swelling. SKIN: Warm and dry. Normal capillary refill. No rashes. No jaundice. NEUROLOGICAL: Alert, awake, appropriate. Cranial nerves 2-12 intact. No deficits to light touch and temperature in face, upper extremities and lower extremities. 5/5 strength in deltoids, biceps, triceps, quadriceps, hamstrings, and gastrocnemius. Normoreflexic in the upper and lower extremities. Normal speech. Gait is normal without ataxia. PSYCHIATRIC: Cooperative. Good eye contact. Appropriate mood and affect. ED Treatment Course - LABORATORY CBC & Chemistry Diagram: 05/18/19 02:38 05/18/19 02:38 - ADDITIONAL ORDERS Additional order review: 05/18/19 02:38 RBC 4.22 MCV 90.3 MCHC 33.3 RDW 16.5 H MPV 10.6 Neutrophils % 83.2 H Lymphocytes % 11.4 D Monocytes % 4.8 Eosinophils % 0.2 D Basophils % 0.4 Medical Decision Making - Medical Decision Making 05/18/19 03:35 Well appearing 23-year-old female with a past medical history of seizures, who presents to the ER after having a seizure witness by her in bed. Patient is not compliant with her medications. I will obtain labs and HCG. Will give Keppra dose and prescribe a patient Keppra. Will obtain labs and hydrate patient. 05/18/19 04:02 Labs WNL. Pt well appearing and has received keppra. Per , pt was supposed to be taking 500 mg keppra BID. Will send to pharmacy and d/c with neuro f/u. Discharge - Discharge Information Problems reviewed: Yes Clinical Impression/Diagnosis: Seizure Condition: Good Disposition: HOME - Admission No - Additional Discharge Information Prescriptions: levETIRAcetam [Keppra -] 500 mg PO BID #14 tablet - Follow up/Referral Referrals: Pradeep Sne MD [Staff Physician] - Vasquez Motta MD [Staff Physician] - - Patient Discharge Instructions Patient Printed Discharge Instructions: DI for Seizure Disorder -- Adult Additional Instructions: Your ER visit is not complete until your follow up with your primary care physician. Please follow up with your primary care physician in 1-2 days. Please follow up with either Dr. Sen or Dr. Motta for a new neurologist. Please return to the ER if you have any signs or symptoms of chest pain, shortness of breath, uncontrollable fever, chills, nausea, vomiting, numbness, tingling, or weakness in any part of your body, changes in vision, or slurred speech. Please take your medications as prescribed. Please return to the ER if symptoms persist, worsen, or new symptoms arise. - Post Discharge Activity
[2019-05-18 04:00] LABS: ALBUMIN 4.1 g/dl (3.4-5.0); BILIRUBIN,TOTAL 0.3 mg/dL (0.2-1); BLOOD UREA NITROGEN 13.9 mg/dL (7-18); CALCIUM 9.2 mg/dL (8.5-10.1); CREATININE 0.8 mg/dL (0.55-1.3); POTASSIUM 4.3 mmol/L (3.5-5.1); TOT PROT 7.6 g/dl (6.4-8.2)
--- NOTE | 2019-05-18 04:14 | PDOC ---
Attending Attestation - Resident Resident Name: JuarezshirleymeliBaldo - ED Attending Attestation I have performed the following: I have examined & evaluated the patient, The case was reviewed & discussed with the resident, I agree w/resident's findings & plan, Exceptions are as noted - HPI HPI: 05/18/19 04:12 22-year-old female history of seizure disorder history of back and medication noncompliance here today complaining of a seizure. Witnessed by her significant other who said she had a 45-second shaking episode while in her sleep was in the bed at the time therefore sustained no trauma is now back to her baseline denies any headache or other pain states that she is only had 2 previous seizures this is a new diagnosis for her she did have a neurologist who she is following but he had recently referred her to a new neurologist which she has not seen yetNo recent fevers chills head trauma or other complaints - Physicial Exam PE: 05/18/19 04:12 Awake alert no acute distress head is atraumatic lungs are clear bilaterally heart is regular murmurs rubs or gallops abdomen soft and dry extremities are warm well perfused patient is neurologically intact 5 out of 5 strength throughout speech is clear - Medical Decision Making 05/18/19 04:13 23-year-old female history of seizure disorder with a likely seizure plan basic labs we will send a Keppra level to the patient's history will load with Keppra 1 g UA UCG sent and pending likely DC home to follow-up with a neurologist was given referral as she requested a new nuerologist for Dr. Motta
[2019-05-18 04:45] LABS: EPI CELLS 6.9 /HPF (0-5/HPF); HYALINE CASTS 23 /lpf (0-8); URINE APPEARANCE CLEAR; URINE BACTERIA 86.7 /hpf (NEGATIVE); URINE BILIRUBIN NEGATIVE (NEGATIVE); URINE COLOR YELLOW; URINE GLUCOSE (UA) NEGATIVE (NEGATIVE); URINE KETONE NEGATIVE (NEGATIVE); URINE LEUK ESTERASE NEGATIVE (NEGATIVE); URINE NITRITE NEGATIVE (NEGATIVE); URINE PROTEIN 1+ (NEGATIVE); URINE RBC 1 /hpf (0-4); URINE UROBILINOGEN 0.2 mg/dL (0.2-1.0); URINE WBC 3 /hpf (0-5)
== END 2019-05-18 04:59 | disposition home or self-care (01) ==
LOC: JER 01:51
PROC: 3E033GC Introduction of Other Therapeutic Substance into Peripheral Vein, Percutaneous Approach (ICD-10-PCS; principal; 2019-05-18)
DX: G40.909 Epilepsy, unspecified, not intractable, without status epilepticus (principal); Z91.14 Patient's other noncompliance with medication regimen
CPT/HCPCS: 36415; 80053; 81003; 84703; 85025; 87086; 96374; 99284-25; J7030

== ENCOUNTER 2019-09-29 07:08 | Emergency (ER) | payer OTHER ==
[2019-09-29 07:57] VITALS: PULSE 83; TEMP 97.7; BMI 23.3
[2019-09-29] MEDS ORDERED: levETIRAcetam 500 MG/5 ML INJECTION VIAL IVPB ONE ×2 (08:09→08:14)
[2019-09-29 08:18] LABS: BASO % 0.4 % (0-2.0); EOS % 0.7 % (0-4.5); HEMATOCRIT 38.7 % (32.4-45.2); HEMOGLOBIN 12.4 GM/dL (10.7-15.3); LYMPH % 13.3 % (8-40); MCH 29.3 pg (25.7-33.7); MCHC 32.2 g/dl (32.0-36.0); MEAN PLT VOLUME 10.7 fl (7.5-11.1); MONO % 4.9 % (3.8-10.2); NEUT % 80.7 % (42.8-82.8); PLATELET COUNT 139 K/MM3 (134-434); RBC 4.25 M/mm3 (3.60-5.2); RDW 15.3 % (11.6-15.6); WHITE BLOOD COUNT 5.7 K/mm3 (4.0-10.0)
[2019-09-29 08:53] LABS: ALBUMIN 3.8 g/dl (3.4-5.0); BILIRUBIN,TOTAL 0.3 mg/dL (0.2-1); BLOOD UREA NITROGEN 12.6 mg/dL (7-18); CALCIUM 8.9 mg/dL (8.5-10.1); CREATININE 0.7 mg/dL (0.55-1.3); POTASSIUM 5.4 mmol/L (3.5-5.1); TOT PROT 7.4 g/dl (6.4-8.2)
[2019-09-29] MEDS ORDERED: ACETAMINOPHEN 1000 MG/100 ML VIAL (NON FORMULARY) IVPB ONE (09:17)
--- NOTE | 2019-09-29 09:30 | PDOC ---
Documentation entered by Jennie Grider SCRIBE, acting as scribe for Van Martines MD. Van Martines MD: This documentation has been prepared by the Martha herrera Nirvannie, SCRIBE, under my direction and personally reviewed by me in its entirety. I confirm that the documentation accurately reflects all work, treatment, procedures, and medical decision making performed by me. History of Present Illness - General Chief Complaint: Seizure Stated Complaint: SEIZURE History Source: Patient Exam Limitations: No Limitations - History of Present Illness Initial Comments: 09/29/19 09:18 The patient is a 23 year old female with a significant past medical history of brain abscess (s/p craniotomy), seizures (on Keppra 500 BID, last episode 2mo ago), migraine headache, who presents to the emergency department s/p 2 episodes of seizures. As per patient, she was asleep in bed at which time she had two episodes of seizures (back to back, recorded by ) with tongue biting. Patient admits to missing her night time Keppra dosage (500mg). Patient has not been able to follow up with her neurologist for the past several months in view of the current outbreak. She denies any urinary or bowel incontinence. Allergies: [facility] Primary Care Physician: Dr. Chuckie Case Neurologist: Dr. Granados ([place]) Past History - Medical History Allergies/Adverse Reactions: Allergies Allergy/AdvReac Type Severity Reaction Status Date / Time No Known Allergies Allergy Verified 09/29/19 07:23 Home Medications: Ambulatory Orders Propranolol HCl 60 mg PO DAILY 12/10/18 Topiramate 25 mg PO DAILY 12/10/18 levETIRAcetam [Keppra -] 500 mg PO BID #14 tablet 05/18/19 Asthma: No Cancer: No Cardiac Disorders: No COPD: No Diabetes: No HTN: No Seizures: Yes Thyroid Disease: No Other medical history: TBI - Surgical History Neurologic Surgery: Yes - Immunization History Immunization Up to Date: Yes - Psycho-Social/Smoking History Smoking History: Never smoked Have you smoked in the past 12 months: No - Substance Abuse Hx (Audit-C & DAST Scrn) How often the patient has a drink containing alcohol: Never Score: In Men: 4 or > Positive; In Women: 3 or > Positive: 0 Screen Result (Pos requires Nsg. Audit-10AR): Negative Review of Systems - Review of Systems Able to Perform ROS?: Yes Comments:: 09/29/19 09:19 CONSTITUTIONAL: No fever, no chills, no fatigue EYES: No visual changes ENT: No ear pain, no sore throat CARDIOVASCULAR: No chest pain, no palpitations RESPIRATORY: No cough, no SOB GI: No abdominal pain, no nausea, no vomiting, no constipation, no diarrhea GENITOURINARY: No dysuria, no frequency, no hematuria MUSKULOSKELETAL: No back pain, no joint pain, no myalgias SKIN: No rash NEURO: +s/p seizure. No headache All Other Systems: Reviewed and Negative *Physical Exam - Vital Signs Last Vital Signs Temp Pulse Resp BP Pulse Ox 97.7 F 83 18 117/73 99 09/29/19 07:20 09/29/19 07:20 09/29/19 07:20 09/29/19 07:20 09/29/19 07:20 - Physical Exam 09/29/19 09:20 CONSTITUTIONAL: Well-appearing; well-nourished; in no apparent distress HEAD: Normocephalic; atraumatic EYES: PERRL; EOM intact ENMT: +Abrasion to the right side of the tongue. External appears normal; normal oropharynx NECK: Supple; non-tender; no cervical lymphadenopathy CARD: Normal S1, S2; no murmurs, rubs, or gallops RESP: Normal chest excursion with respiration; breath sounds clear and equal bilaterally; no wheezes, rhonchi, or rales ABD: Soft, non-distended; non-tender; no palpable organomegaly, no palpable hernias EXT: Normal ROM in all four extremities; non-tender to palpation; distal pulses intact SKIN: Warm, dry, no rash NEURO: +Alert to self and place but, gives incorrect date. ED Treatment Course - LABORATORY CBC & Chemistry Diagram: 09/29/19 07:50 09/29/19 07:50 Medical Decision Making - Medical Decision Making 09/29/19 09:28 Patient is a 25-year-old female with history of seizure disorder, status post craniotomy for brain abscess at the age of 13, currently on Keppra p.o. twice daily 500 mg (compliant) brought in by EMS after witnessed 2 generalized tonic- clonic seizures while at home. In the ER, patient is awake and alert, oriented to self, place, and correctly identified to date. Minor abrasions are noted to the right side of the tongue. Otherwise patient nonfocal neurologically. Patient did not take her p.m. Keppra dose. Will obtain Keppra level and will administer IV Keppra at 500 mg. Will discuss with neurology. Likely discharge. 09/29/19 09:46 Patient resting comfortably. Patient ANO x3 at the moment. No focal neuro deficits are noted. Patient wishes to be discharged. I attempted to contact patient's neurologist but have received no feedback at this time. Will encourage the patient to increase Keppra to 750 twice daily. Also advised patient to abstain from alcohol and drugs. Will discharge with outpatient follow-up. Discharge - Discharge Information Problems reviewed: Yes Clinical Impression/Diagnosis: Seizure Condition: Stable Disposition: HOME - Follow up/Referral Referrals: Adriano Granados MD [Primary Care Provider] - - Patient Discharge Instructions Patient Printed Discharge Instructions: DI for Seizure Disorder -- Adult Additional Instructions: Increase Keppra to 750 mg twice daily. Abstain from alcohol and drugs. Return immediately for recurrent seizures. Follow-up with your neurologist promptly. - Post Discharge Activity
[2019-09-29] MEDS ORDERED: ACETAMINOPHEN INJECTION 100 ML IVPB ONE (09:44)
[2019-09-29 10:16] VITALS: BP 134/77
== END 2019-09-29 10:16 | disposition home or self-care (01) ==
LOC: JER 07:08
PROC: 3E033GC Introduction of Other Therapeutic Substance into Peripheral Vein, Percutaneous Approach (ICD-10-PCS; principal; 2019-09-29)
DX: R56.9 Unspecified convulsions (principal)
CPT/HCPCS: 36415; 80053; 80177; 80201; 84703; 85025; 99284-25; J0131

== ENCOUNTER 2021-07-04 08:11 | Emergency (ER) | payer OTHER ==
[2021-07-04 08:19] VITALS: BP 118/66; PULSE 99; TEMP 98.4; BMI 26.6
[2021-07-05 14:08] LABS: SARS-CoV-2 NAA Not Detected (Not Detected)
== END 2021-07-04 09:04 | disposition home or self-care (01) ==
LOC: JERFT 08:11
DX: R05.1 Acute cough (principal); J01.00 Acute maxillary sinusitis, unspecified
CPT/HCPCS: 87804; 99283-25; C9803-CS; U0003; U0005

== ENCOUNTER 2022-04-04 07:28 | Emergency (ER) | payer OTHER ==
[2022-04-04] MEDS ORDERED: ACETAMINOPHEN 1000 MG/100 ML BAG IVPB ONE (07:58)
[2022-04-04] MEDS ORDERED: SODIUM CHLORIDE 0.9% 500 ML INFUS.BAG IV ONE (07:58)
[2022-04-04] MEDS ORDERED: METOCLOPRAMIDE HCL INJECTION 10 MG/2 ML VIAL IVPUSH ONE (07:59)
[2022-04-04] MEDS ORDERED: levETIRAcetam 500 MG/5 ML INJECTION VIAL IVPB ONE ×2 (08:05→08:48)
[2022-04-04 08:06] VITALS: BMI 28.3
[2022-04-04] MEDS ORDERED: ACETAMINOPHEN INJECTION 100 ML IVPB ONE (08:48)
[2022-04-04] MEDS ORDERED: METOCLOPRAMIDE HCL INJECTION 10 MG/2 ML VIAL ONE (08:48)
[2022-04-04 08:53] LABS: BASO % 0.5 % (0-2.0); HEMOGLOBIN 13.5 GM/dL (10.7-15.3); LYMPH % 4.3 % (8-40); MCH 31.1 pg (25.7-33.7); MCHC 33.1 g/dl (32.0-36.0); MEAN PLT VOLUME 9.9 fl (7.5-11.1); MONO % 4.4 % (3.8-10.2); NEUT % 90.8 % (42.8-82.8); PLATELET COUNT 151 10^3/uL (134-434); RBC 4.36 M/mm3 (3.60-5.2); RDW 14.8 % (11.6-15.6); WHITE BLOOD COUNT 13.7 K/mm3 (4.0-10.0)
[2022-04-04 09:19] LABS: CALCIUM 8.9 mg/dL (8.5-10.1)
[2022-04-04 09:20] LABS: ALBUMIN 3.9 g/dl (3.4-5.0)
[2022-04-04 09:23] LABS: CREATININE 0.8 mg/dL (0.55-1.3)
[2022-04-04 09:25] LABS: BILIRUBIN,TOTAL 0.2 mg/dL (0.2-1); TOT PROT 7.4 g/dl (6.4-8.2)
[2022-04-04 11:47] VITALS: BP 118/67; PULSE 88; RESP 18; TEMP 97.7
== END 2022-04-04 11:40 | disposition home or self-care (01) ==
LOC: JER 07:28
PROC: 3E033GC Introduction of Other Therapeutic Substance into Peripheral Vein, Percutaneous Approach (ICD-10-PCS; principal; 2022-04-04)
PROC: 3E0333Z Introduction of Anti-inflammatory into Peripheral Vein, Percutaneous Approach (ICD-10-PCS; 2022-04-04)
PROC: 3E033GC Introduction of Other Therapeutic Substance into Peripheral Vein, Percutaneous Approach (ICD-10-PCS; 2022-04-04)
DX: G40.89 Other seizures (principal)
CPT/HCPCS: 36415; 80053; 80175; 80177; 82962; 84703; 85025; 99284-25

== ENCOUNTER 2024-01-25 06:16 | Emergency (ER) | payer SELFPAY ==
[2024-01-25 06:27] VITALS: BMI 28.3
[2024-01-25] MEDS ORDERED: ACETAMINOPHEN 325 MG TABLET (FP) ONE (08:16)
[2024-01-25] MEDS: ACETAMINOPHEN 325 MG TABLET (FP) PO ONE (08:37)
[2024-01-25 09:06] LABS: BASO % 0.4 % (0-2.0); EOS % 0.9 % (0-4.5); HEMATOCRIT 41.4 % (32.4-45.2); HEMOGLOBIN 13.9 GM/dL (10.7-15.3); LYMPH % 15.2 % (8-40); MCH 30.8 pg (25.7-33.7); MCHC 33.6 g/dl (32.0-36.0); MEAN CELL VOLUME 91.6 fl (80-96); NEUT % 78.5 % (42.8-82.8); PLATELET COUNT 200 10^3/uL (134-434); RBC 4.52 M/mm3 (3.60-5.2); RDW 14.9 % (11.6-15.6); WHITE BLOOD COUNT 8.2 K/mm3 (4.0-10.0)
[2024-01-25 09:31] LABS: POTASSIUM 4.3 mmol/L (3.5-5.1)
[2024-01-25 09:32] LABS: CALCIUM 9.5 mg/dL (8.5-10.1)
[2024-01-25 09:33] LABS: ALBUMIN 4.1 g/dl (3.4-5.0)
[2024-01-25 09:36] LABS: CREATININE 0.8 mg/dL (0.55-1.3)
[2024-01-25 09:38] LABS: BILIRUBIN,TOTAL 0.3 mg/dL (0.2-1); TOT PROT 7.9 g/dl (6.4-8.2)
[2024-01-25 10:03] LABS: URINE APPEARANCE CLOUDY; URINE BILIRUBIN NEGATIVE (NEGATIVE); URINE COLOR YELLOW; URINE GLUCOSE (UA) NEGATIVE (NEGATIVE); URINE KETONE NEGATIVE (NEGATIVE); URINE LEUK ESTERASE NEGATIVE (NEGATIVE); URINE NITRITE NEGATIVE (NEGATIVE); URINE PROTEIN NEGATIVE (NEGATIVE); URINE UROBILINOGEN 0.2 mg/dL (0.2-1.0)
[2024-01-25 10:06] LABS: HCG,QUALITATIVE URINE Negative
[2024-01-25 10:23] VITALS: BP 107/55; PULSE 76; RESP 20; TEMP 98.3
[2024-01-25 12:11] LABS: HIV INTERPRETATION NEGATIVE (NEGATIVE)
== END 2024-01-25 12:23 | disposition home or self-care (01) ==
LOC: JER 06:16
PROC: 0CQ1XZZ Repair Lower Lip, External Approach (ICD-10-PCS; principal; 2024-01-25)
DX: S01.511A Laceration without foreign body of lip, initial encounter (principal); R56.9 Unspecified convulsions; W18.39XA Other fall on same level, initial encounter
CPT/HCPCS: 36415; 80053; 81003; 84703; 85025; 86803; 87086; 87389; 93005; 93010; 99284-25